=== PATIENT | female | born 1935 | race African-American/Black ===

== ENCOUNTER 2019-06-14 00:01 | Inpatient (IN) | payer MEDICARE ==
[~2019-06-14] VITALS: Ht 157.5 cm; Wt 69.0 kg
[2019-06-14 00:48] LABS: Basophils # (auto) 0.1 uL; Basophils % (auto) 0.7 % (0.0-2.0); Eosinophils # (auto) 0.2 uL; Eosinophils % (auto) 1.9 % (0.0-7.0); Hematocrit 30.6 % (36.0-46.0); Hemoglobin 9.9 g/dL (12.2-16.2); Lymphocytes # (auto) 1.1 uL; Lymphocytes % (auto) 9.5 % (10.0-50.0); Mean Corpuscular Hemoglobin 28.5 pg (28.0-32.0); Mean Corpuscular Hgb Conc. 32.3 g/dL (32.0-36.0); Mean Corpuscular Volume 88.4 fL (80.0-100.0); Monocytes # (auto) 1.6 uL; Monocytes % (auto) 14.6 % (0.0-12.0); Neutrophils # (auto) 8.2 uL; Neutrophils % (auto) 73.3 % (37.0-80.0); Platelet Count (auto) 339 10^3/uL (140-450); Red Blood Cells 3.46 10^6/uL (4.0-5.20); Red Cell Distribution Width 18.3 % (11.8-14.3); White Blood Cell 11.2 10^3/uL (4.4-10.8)
[2019-06-14 01:01] LABS: Alanine Aminotransferase 10 U/L (13-56); Albumin 1.9 g/dL (3.4-5.0); Anion Gap 8 (5-15); Aspartate Aminotransferase 17 U/L (15-37); BUN/Creatinine Ratio 23.2; Blood Urea Nitrogen 57 mg/dL (7-18); Calcium 8.1 mg/dL (8.5-10.1); Carbon Dioxide 23 mmol/L (21-32); Chloride 111 mmol/L (98-107); GFR African American 24 mL/min; GFR Non-African American 20 mL/min; Glucose 84 mg/dL (74-106); Potassium 3.9 mmol/L (3.5-5.1); Sodium 142 mmol/L (136-145)
[2019-06-14 01:02] LABS: INR 1.08 (0.9-1.15); Partial Thromboplastin Time 26.8 sec (23.64-32.05)
[2019-06-14 01:05] LABS: Alkaline Phosphatase 108 U/L (45-117); Bilirubin, Total 0.8 mg/dL (0.2-1.0)
[2019-06-14] MEDS ORDERED: MORPHINE SULF INJ 2 MG/ML SYRINGE 1ML IV ONE (04:30)
[2019-06-14] MEDS ORDERED: metroNIDAZOLE 500MG/100ML 100 ML IV ONE (04:30)
[2019-06-14] MEDS ORDERED: ALBUMIN 5% 50 ML IV ONE (04:30)
[2019-06-14] MEDS ORDERED: LEVOFLOXACIN 500MG 100 ML IV ONE (04:30)
[2019-06-14] MEDS ORDERED: ONDANSETRON HCL 4 MG/2 ML VIAL IV ONE (04:30)
[2019-06-14] MEDS ORDERED: MORPHINE SULF INJ 2 MG/ML SYRINGE 1ML IV PRN (07:15)
[2019-06-14] MEDS ORDERED: NITROGLYCERIN 0.4 MG SL TAB SL PRN (07:15)
[2019-06-14] MEDS ORDERED: ACETAMINOPHEN 325 MG TAB PO PRN (07:15)
[2019-06-14] MEDS ORDERED: TEMAZEPAM 15 MG CAP PO PRN (07:15)
[2019-06-14 07:58] LABS: Hematocrit 27.5 % (36.0-46.0)
[2019-06-14 08:40] VITALS: BP 94/36
[2019-06-14] MEDS ORDERED: PANTOPRAZOLE 40 MG TAB PO SCH (10:00)
[2019-06-14 11:15] VITALS: BP 106/68
[2019-06-14 11:33] VITALS: BP 106/68
[2019-06-14 11:33] LABS: Urine Bacteria NONE SEEN /hpf (None Seen); Urine Blood 2+ /uL (Negative); Urine Mucus FEW (None Seen); Urine Specific Gravity 1.013 (1.001-1.035); Urine WBC 4476 /hpf (0 - 5); Urine WBC Clumps PRESENT /hpf (None Seen)
[2019-06-14 12:01] LABS: Hemoglobin 9.2 g/dL (12.2-16.2)
[2019-06-14] MEDS: PANTOPRAZOLE 40 MG/10 ML VIAL INJ IV SCH ×2 (12:19→21:40)
[2019-06-14] MEDS: D5W/SOD CHL 0.45% 1,000 ML IV SCH (12:20)
--- NOTE | 2019-06-14 13:15 | NUR ---
Patient requesting pain meds Pt c/o pain to wound areas including sacrum and bilat lower extremities. New orders received from Dr. Hairston for [facility]. Will medicate as ordered and cont care
[2019-06-14] MEDS: HYDROcodone-ACET 5/325MG TAB PO PRN ×2 (13:23→21:40)
[2019-06-14 16:28] VITALS: BP 94/49
[2019-06-14] MEDS: FUROSEMIDE 20 MG TAB PO SCH (18:00)
[2019-06-14 18:41] LABS: Hematocrit 28.8 % (36.0-46.0); Hemoglobin 9.2 g/dL (12.2-16.2)
--- NOTE | 2019-06-14 19:00 | NUR ---
OPENING NOTE Received report from day shift RN. Patient is A&O X's 4 with no s/s of distress noted. Patient's family member at bedside. Patient had crackers in her hand. Educated patient and family member that she can only have liquids right now. They verbalized understanding and patient's family took the food away. Educated patient on POC and to use call light when in need of assistance. Patient verbalized understanding. Bed is in lowest/locked position with side rails up X's 2 and call light is within reach of patient. Will continue care.
[2019-06-14 21:46] VITALS: BP 90/44
--- NOTE | 2019-06-14 21:46 | NUR ---
REASSESSED BLOOD PRESSURE 90/34. Patient asymptomatic
[2019-06-14 22:10] VITALS: BP 80/34
--- NOTE | 2019-06-14 23:30 | NUR ---
WOUND PHOTOS Wound photos were taken at this time. Cleaned wounds and applied optifoam to sacrum. Patient tolerated well. Filled out wound photo paper
--- NOTE | 2019-06-14 23:30 | NUR ---
WOUND CULTURE SENT VIA BULLET TO LAB
--- NOTE | 2019-06-15 00:16 | NUR ---
Respiratory note: ASSESSED PT FOR PRN MED NEB AT THIS TIME, PT DENIES SOB AT THIS TIME, NO RESP DISTRESS NOTED, NO TX INDICATED. PULSE OX 100% ON 2LNC, HR 65, RR 20, BILATERAL BS DECREASED.
[2019-06-15 01:10] LABS: Hematocrit 28.3 % (36.0-46.0); Hemoglobin 9.2 g/dL (12.2-16.2)
[2019-06-15] MEDS: FUROSEMIDE 20 MG TAB PO SCH (05:24)
[2019-06-15 05:34] VITALS: BP 94/36
[2019-06-15 06:06] LABS: Basophils # (auto) 0 uL; Basophils % (auto) 0.5 % (0.0-2.0); Eosinophils # (auto) 0.5 uL; Eosinophils % (auto) 5.5 % (0.0-7.0); Hematocrit 26.9 % (36.0-46.0); Hemoglobin 8.7 g/dL (12.2-16.2); Lymphocytes # (auto) 1.2 uL; Mean Corpuscular Hemoglobin 29.4 pg (28.0-32.0); Mean Corpuscular Hgb Conc. 32.2 g/dL (32.0-36.0); Mean Corpuscular Volume 91.4 fL (80.0-100.0); Monocytes # (auto) 1.4 uL; Monocytes % (auto) 16.7 % (0.0-12.0); Neutrophils # (auto) 5.1 uL; Neutrophils % (auto) 62.3 % (37.0-80.0); Nucleated Red Blood Cells % 0.1 %; Platelet Count (auto) 268 10^3/uL (140-450); Red Blood Cells 2.94 10^6/uL (4.0-5.20); Red Cell Distribution Width 19.1 % (11.8-14.3); White Blood Cell 8.3 10^3/uL (4.4-10.8)
[2019-06-15] MEDS: LEVOFLOXACIN 250MG 50 ML IV SCH (06:19)
[2019-06-15 06:20] LABS: Potassium 3.8 mmol/L (3.5-5.1)
[2019-06-15 06:25] LABS: BUN/Creatinine Ratio 32.4; Calcium 7.7 mg/dL (8.5-10.1)
--- NOTE | 2019-06-15 07:10 | NUR ---
Respiratory note: PT SEEN TO ASSESS PRN MED NEB TREATMENT. PT IS NOT SOB OR IN ANY DISTRESS. PT FOUND ON 2 LPM SP02 100%, HR 72, RR 18. B/S ARE CLEAR AND DIMINISHED AT BASES. NO TREATMENT INDICATED AT THIS TIME. PT EDUCATED TO USE CALL BUTTON IF FEELING SOB OR WHEEZING AND TREATMENT CAN BE GIVEN AT THAT TIME.
[2019-06-15 08:03] VITALS: BP 95/48
[2019-06-15] MEDS ORDERED: MULTTAB61 PO (08:57)
[2019-06-15] MEDS ORDERED: FURO40TA4 PO (08:57)
[2019-06-15] MEDS: PANTOPRAZOLE 40 MG/10 ML VIAL INJ IV SCH (09:51)
[2019-06-15] MEDS: D5W/SOD CHL 0.45% 1,000 ML IV SCH (09:54)
--- NOTE | 2019-06-15 12:09 | NUR ---
Hospitalist at bedside MD Hairston at bedside, aware of patient's status. New orders received. Pt's son Lv requesting MD to contact him, MD Hairston will call son to update on POC and status. Will cont care
[2019-06-15 12:11] VITALS: BP 119/58
[2019-06-15] MEDS ORDERED: PANTOPRAZOLE 40 MG TAB PO ONE (12:15)
[2019-06-15] MEDS: HYDROcodone-ACET 5/325MG TAB PO PRN ×2 (12:33→20:11)
--- NOTE | 2019-06-15 14:10 | NUR ---
WOUND CARE NOTE: Wound care consult received from Dr Hairston. Patient is a 84yo female admitted for GI bleed. Patient with a history of chronic kidney disease, CHF, COPD and afib. Patient is alert and denies pain. Last Hansel score is 16. Patient states that she had a nurse come and apply dressings to bilateral lower extremities Tuesdays and Fridays. Patient also has severe incontinence associated dermatitis to right posterior thigh and buttocks. Patient also with a shallow pressure injury to sacrum that measures 2x2cm. RECOMMENDATIONS: Dietary consult; Turn q2hrs; Nursing to cleanse buttocks and posterior thighs with wound cleanser, pat dry, apply ZGUARD, and cover with OPTIFOAM GENTLE dressings, change daily/PRN soiling; Nursing to cleanse bilateral lower extremities with wound cleanser, pat dry, cover open wound to right lieberman with OPTIFOAM, wrap bilateral legs with UNNAS BOOTS (start 1" below toes and work way up over lapping to 1" below knee), cover with 1 layer of kerlex gauze and may cover with GEORGE wrap, change q3days/PRN; wound care team to follow. Addendum: 06/15/19 at 1856 by PARMJIT LIMON RN Amended: Links added.
[2019-06-15 16:30] VITALS: BP 107/40
--- NOTE | 2019-06-15 19:00 | NUR ---
Patient care endorsed endorsed care to Pollo rn. Patient sitting up in bed no acute distress or sob. Family at bedside
--- NOTE | 2019-06-15 19:26 | NUR ---
Opening Shift Note Assumed care of patient, awake and alert x 4. No S/S of distress/SOB. Bed is in lowest position and locked. Call light within reach. Board updated. Tele box number matches monitor and leads are in correct placement. Padilla catheter secured to thigh and bag is hanging below bladder, secured to non-moveable part of bedframe. Instructed on POC and to call for assist PRN, will continue to monitor for changes Q1hr and PRN.
[2019-06-15] MEDS: PANTOPRAZOLE 40 MG TAB PO SCH (21:07)
[2019-06-15 22:46] VITALS: BP 98/36
--- NOTE | 2019-06-15 23:36 | NUR ---
BP Reassess: BP is 99/48 with MAP of 65. Will continue to monitor.
--- NOTE | 2019-06-16 00:32 | NUR ---
Respiratory note: NO PRN TX GIVEN, NOT INDICATED AT THIS TIME. SPO2 98%, HR 59, RR 16. NO SOB NOTED.
[2019-06-16] MEDS: HYDROcodone-ACET 5/325MG TAB PO PRN ×3 (02:03→21:05)
[2019-06-16 05:34] VITALS: BP 95/52
[2019-06-16 06:10] LABS: Basophils # (auto) 0 uL; Basophils % (auto) 0.4 % (0.0-2.0); Eosinophils # (auto) 0.4 uL; Eosinophils % (auto) 4.7 % (0.0-7.0); Hematocrit 27.6 % (36.0-46.0); Lymphocytes # (auto) 1.2 uL; Lymphocytes % (auto) 14.8 % (10.0-50.0); Mean Corpuscular Hemoglobin 29.5 pg (28.0-32.0); Mean Corpuscular Hgb Conc. 32.6 g/dL (32.0-36.0); Mean Corpuscular Volume 90.7 fL (80.0-100.0); Monocytes # (auto) 1.1 uL; Monocytes % (auto) 13.7 % (0.0-12.0); Neutrophils # (auto) 5.2 uL; Neutrophils % (auto) 66.4 % (37.0-80.0); Platelet Count (auto) 269 10^3/uL (140-450); Red Blood Cells 3.04 10^6/uL (4.0-5.20); Red Cell Distribution Width 18.6 % (11.8-14.3); White Blood Cell 7.8 10^3/uL (4.4-10.8)
[2019-06-16] MEDS: LEVOFLOXACIN 250MG 50 ML IV SCH (06:10)
[2019-06-16 06:45] LABS: Calcium 7.6 mg/dL (8.5-10.1); Potassium 4.8 mmol/L (3.5-5.1)
--- NOTE | 2019-06-16 06:45 | NUR ---
PT. ASSESSED FOR PRN. MN. TX., NO RESP. DISTRESS OR SOB NOTED. PT. DENIES ANY SOB AT THIS TIME. BS. ARE CLEAR AND DIMINISHED BILAT., HR=58,RR=18,DR22=438% ON 2LPM NC. PRN. TX. NOT INDICATED. PT. INSTRUCTED TO CALL IF TX. IS NEEDED. NO TX. GIVEN.
[2019-06-16 06:53] LABS: BUN/Creatinine Ratio 35.9
--- NOTE | 2019-06-16 07:50 | NUR ---
OPENING NOTE Assumed care of patient from NOC RN, Pollo. Patient awake and alert with no S/S of distress/SOB. C/O of bilateral leg pain and sacral pain, 6/10 on adult pain scale. Will administer prn pain medications as ordered. Padilla catheter intact, patent and hung below bed. Instructed on POC and to call for assist PRN, verbalized understanding. Bed in lowest, locked position with side rails up x2. Fall precautions in place and call light within reach. Will continue to monitor for changes Q1hr and PRN.
[2019-06-16 08:14] VITALS: BP 85/40
[2019-06-16] MEDS ORDERED: SOD CHL 0.45% 1,000 ML IV SCH (10:00)
[2019-06-16] MEDS ORDERED: VANCOMYCIN PER PHARMACY 0 MG IV SCH (11:00)
--- NOTE | 2019-06-16 11:20 | NUR ---
IV Additional IV insertion at the right forearm, with a 20g catheter after 1 attempt. Patient tolerated well.
[2019-06-16] MEDS: PANTOPRAZOLE 40 MG TAB PO SCH ×2 (11:24→21:04)
[2019-06-16] MEDS ORDERED: IOHEXOL 350 MG/ML 100ML IJ ONE ×2 (11:45→11:47)
[2019-06-16 12:05] VITALS: BP 104/54
--- NOTE | 2019-06-16 12:12 | NUR ---
NUTRITION CONSULT/ASSESSMENT NOTES Please refer to link notes of nutrition screen form filed under the intervention section of the plan of care for further details. Est. Needs: 1350 kcal to 1700 kcal (20-25 kcal/kgBW), 54 gms to 68 gms pro (0.8-1.0 gms/kgBW). Will continue to monitor pertinent labs and reassess nutrient need prn Thank you for this consult. Addendum: 06/16/19 at [address] Amended: Links added.
--- NOTE | 2019-06-16 12:42 | NUR ---
OFF UNIT Patient taken off unit via wheelchair for test. No S/S of distress noted.
[2019-06-16] MEDS: VANCOMYCIN 500 MG in D5W 5% 100 ML IV SCH (14:09)
[2019-06-16] MEDS: SODIUM CHLORIDE 0.9% 1,000 ML IV SCH (14:09)
[2019-06-16 16:28] VITALS: BP 99/46
--- NOTE | 2019-06-16 18:13 | NUR ---
FAMILY Patient's family at bedside.
--- NOTE | 2019-06-16 19:58 | NUR ---
Respiratory note: ASSESSMENT FOR PRN MED NEB TX. PT PRESENTING NO DISTRESS AT THIS TIME. HR 67, SPO2 99%, RR 16 B/S DIMINISHED CLEAR. MED NEB TX NOT INDICATED AT THIS TIME. PT AWARE TO HAVE RT PAGED IF MED NEB TX IS NEEDED, WILL CONTINUE TO MONITOR.
[2019-06-16 22:00] VITALS: BP 103/44
[2019-06-17 01:34] LABS: Urine Bacteria NONE SEEN /hpf (None Seen); Urine Blood 2+ /uL (Negative); Urine Mucus FEW (None Seen); Urine WBC 93 /hpf (0 - 5)
[2019-06-17 05:00] VITALS: BP 103/49
[2019-06-17 05:19] LABS: Basophils # (auto) 0.1 uL; Basophils % (auto) 0.7 % (0.0-2.0); Eosinophils # (auto) 0.5 uL; Eosinophils % (auto) 6.3 % (0.0-7.0); Hematocrit 28.2 % (36.0-46.0); Hemoglobin 9.1 g/dL (12.2-16.2); Lymphocytes % (auto) 12.6 % (10.0-50.0); Mean Corpuscular Hemoglobin 29.3 pg (28.0-32.0); Mean Corpuscular Hgb Conc. 32.3 g/dL (32.0-36.0); Mean Corpuscular Volume 90.7 fL (80.0-100.0); Monocytes # (auto) 1.2 uL; Monocytes % (auto) 14.5 % (0.0-12.0); Neutrophils # (auto) 5.2 uL; Neutrophils % (auto) 65.9 % (37.0-80.0); Platelet Count (auto) 249 10^3/uL (140-450); Red Blood Cells 3.11 10^6/uL (4.0-5.20); Red Cell Distribution Width 18.9 % (11.8-14.3)
[2019-06-17 05:28] LABS: Albumin 1.7 g/dL (3.4-5.0); Calcium 8.1 mg/dL (8.5-10.1); Potassium 5.2 mmol/L (3.5-5.1)
[2019-06-17 05:33] LABS: BUN/Creatinine Ratio 32.5; Bilirubin, Total 0.2 mg/dL (0.2-1.0); Total Protein 6.1 g/dL (6.4-8.2)
--- NOTE | 2019-06-17 05:45 | NUR ---
Patients Valuables Envelope Primary RN brought belongings envelope number [id number] to the house supervisors office to be placed in the safe, the envelope will be endorsed to day shift Porter Head Kimberli to place in the safe.
[2019-06-17] MEDS: SODIUM CHLORIDE 0.9% 1,000 ML IV SCH ×2 (06:00)
[2019-06-17] MEDS: LEVOFLOXACIN 250MG 50 ML IV SCH (06:21)
[2019-06-17] MEDS: HYDROcodone-ACET 5/325MG TAB PO PRN ×2 (06:22→20:20)
--- NOTE | 2019-06-17 07:29 | NUR ---
OPENING NOTE Assumed care of patient from NOC RN, Pollo. Patient awake and alert with no S/S of distress/SOB. C/O of bilateral leg pain and sacral pain, 5/10 on adult pain scale. Will administer prn pain medications as ordered. Padilla catheter intact, patent and hung below bed. Instructed on POC and to call for assist PRN, verbalized understanding. Bed in lowest, locked position with side rails up x2. Fall precautions in place and call light within reach. Will continue to monitor for changes Q1hr and PRN.
[2019-06-17 09:00] VITALS: BP 94/47
[2019-06-17] MEDS ORDERED: SODIUM ZIRCONIUM CYCL 10 GM PAK PO ONE (09:00)
--- NOTE | 2019-06-17 09:31 | NUR ---
OFF UNIT Patient taken off unit via bed for scheduled procedure, no S/S of distress noted.
[2019-06-17] MEDS ORDERED: LIDOCAINE 2%HCL (LOCAL ANESTH.) INJ 20ML MDV ONE (09:48)
[2019-06-17] MEDS ORDERED: IOHEXOL 350 MG/ML 100ML IJ ONE (09:48)
[2019-06-17] MEDS ORDERED: ANGIOMAX 250 MG VIAL IV ONE (09:58)
[2019-06-17] MEDS ORDERED: MIDAZOLAM HCL 1MG/1ML-2 ML VIAL ONE (09:59)
[2019-06-17] MEDS ORDERED: SODIUM CHL 0.9% 50 ML ONE (09:59)
[2019-06-17] MEDS ORDERED: fentaNYL CITRATE 100 MCG/2 ML VL ONE (09:59)
[2019-06-17] MEDS: PANTOPRAZOLE 40 MG TAB PO SCH ×2 (10:00→22:50)
[2019-06-17] MEDS ORDERED: IODIXANOL 320MG/ML 100ML BTL IV ONE (10:09)
[2019-06-17] MEDS ORDERED: FUROSEMIDE 100 MG/10ML VIAL IV ONE (10:30)
[2019-06-17] MEDS ORDERED: LEVOFLOXACIN 250MG 50 ML IV ONE (11:15)
[2019-06-17 13:00] VITALS: BP 106/55
--- NOTE | 2019-06-17 13:45 | NUR ---
RETURN TO UNIT Patient returned to unit and was assessed by Mamta SIMEON. Per RN, left groin incision soft touch with no S/S of bleeding/hemorrhage. Patient aware she needs to remain flat unit 1440. Bed in lowest, locked position with side rails up x2. Fall precautions in place and call light within reach.Will continue to monitor Q1hr/PRN.
--- NOTE | 2019-06-17 13:50 | NUR ---
HEMATURIA Per bolt labeler RN, patient experiencing hematuria. MD aware, will continue to monitor.
--- NOTE | 2019-06-17 14:21 | NUR ---
assessment Patient is a 84 year old female who is alert and oriented. Patients cognitive abilities are intact. Prior to admission patient lived home with her son Lv and family and functioned with assistance. Per patient she will return home to her prior living arrangements post discharge and her family will transport her home. Patient informed me she has a fww for home use. Patient informed me she was living with her son in [place] for a little while, then moved with son in [place] and is now with Lv here locally. Per patient she stays between her 3 son's. Patient informed me she feels safe returning home with Lv and family on discharge. Patient does not have a PCP. Joi Arce to see patient for PCP. Patient has home health prior to admission, but does not remember the name of the company. -Patient will need a resumption order on discharge. I informed patient she has a right to speak to a social media senior associate regarding all care. I informed patient she has a right to participate in any and all discharge planning. Patient does not have a POA and advanced directive. I have offered patient information on POA and advanced directives. I informed the patient the advantages and benefits of having an Advanced Directive. Patient verbalized understanding and agreed to discharge plan home. Addendum: 06/17/19 at 1426 by Joi BRODY Amended: Links added.
--- NOTE | 2019-06-17 15:16 | NUR ---
REASSESSED Reassessed patient's left groin, remains soft to touch with no S/S of bleeding.
--- NOTE | 2019-06-17 15:31 | NUR ---
ASSESSED PT FOR MED NEB PRN TX, PT ON 3L NC WITH NO DISTRESS NOTED WITH GOOD INSPIRATORY EFFORT. NO INDICATION FOR MED NEB AT THIS TIME. WILL CONTINUE TO MONITOR PT.
[2019-06-17] MEDS: VANCOMYCIN 500 MG in D5W 5% 100 ML IV SCH (15:46)
[2019-06-17] MEDS: Pro-Stat SF 30ml Vanilla PO SCH (18:00)
[2019-06-17] MEDS: Ensure Enlive Chocolate 8oz Bottle PO SCH (18:00)
--- NOTE | 2019-06-17 18:40 | NUR ---
DRESSING CHANGE Removed soiled sacral/buttock dressing. Cleaned area with wound cleanser, patted dry with sterile 4x4 gauze. Applied z-guard to wound beds, covered with gentle optifoam dressing.
--- NOTE | 2019-06-17 19:33 | NUR ---
CLOSING NOTE Endorsed care of patient to NOC Franca SIMEON. Patient's family at bedside.
--- NOTE | 2019-06-17 19:47 | NUR ---
RT NOTE PT WAS SEEN BY RT FOR PRN HHN TX. PT IS AWAKE WITHOUT SOB OR DISTRESS. FAMILY MEMBERS AND RN ARE AT BEDSIDE. PT STATES NO TREATMENT NEEDED AT THIS TIME. NO SOB OR DISTRESS NOTED. HR 68, RR 18, BS CLEAR/DIM POX 98% ON 2L NASAL CANNULA. PT IS AWARE TO CALL IF TX NEEDED. PT REQUESTING EXTRA BLANKET, RN STATES SHE WILL GET IT. FAMILY MEMBERS REQUESTING EXTRA CUPS, RN STATES SHE WILL PROVIDE THEM WELL. CONT ORDERED Addendum: 06/17/19 at 1950 by Mayelin Talbert RT Amended: Links added.
[2019-06-17 20:00] VITALS: BP 98/54
--- NOTE | 2019-06-17 20:00 | NUR ---
Opening Shift Note Assumed care of patient, awake and alert. No S/S of distress/SOB. Patient complains of pain to left lower extremity. Family at bedside. 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 Padilla intact draining to gravity callie cloudy urine. Bed in low position and call light in reach. Instructed on POC and to call for assist PRN, will continue to monitor for changes Q1hr and PRN.
[2019-06-17 22:00] VITALS: BP 98/54
--- NOTE | 2019-06-18 00:15 | NUR ---
Care transferred Received report about patient from BLANCO Schulte
--- NOTE | 2019-06-18 00:33 | NUR ---
Patient repositioned to left side. Heels floating off bed. Call light in reach. No distress noted. Report given to Sofía.
[2019-06-18 05:07] LABS: Hematocrit 24.2 % (36.0-46.0)
[2019-06-18 05:09] LABS: Hemoglobin 8.2 g/dL (12.2-16.2)
[2019-06-18 05:31] LABS: Albumin 1.4 g/dL (3.4-5.0); Calcium 7.8 mg/dL (8.5-10.1); Potassium 4.3 mmol/L (3.5-5.1)
[2019-06-18 05:32] VITALS: BP 91/43
--- NOTE | 2019-06-18 05:32 | NUR ---
Respiratory note: HHN TX NOT INDICATED AT THIS TIME. RR 17 HR 64 SPO2 100% ON 2L NC. BREATH SOUNDS CLEAR. WILL CONTINUE TO MONITOR.
[2019-06-18 05:36] LABS: BUN/Creatinine Ratio 27.2; Bilirubin, Total 0.1 mg/dL (0.2-1.0); Total Protein 5.3 g/dL (6.4-8.2)
--- NOTE | 2019-06-18 07:22 | NUR ---
Open Shift Note Received report on patient, asleep in bed but easily awoken to name. Patient shows no signs of distress at this time. Discussed POC with patient. Bed in lowest locked position, side rails up x2 and call light within reach. Will continue to monitor.
--- NOTE | 2019-06-18 07:43 | NUR ---
REPORT GIVEN TO ALE SIMEON. LEFT GROIN DRESSING IS CLEAN DRY AND INTACT. AREA IS SOFT.
[2019-06-18 09:00] VITALS: BP 92/75
[2019-06-18] MEDS: Ensure Enlive Chocolate 8oz Bottle PO SCH ×2 (09:17→18:54)
[2019-06-18] MEDS: Pro-Stat SF 30ml Vanilla PO SCH ×2 (09:18→18:54)
[2019-06-18 11:11] LABS: Urine Bacteria FEW /hpf (None Seen); Urine Blood 2+ /uL (Negative); Urine Mucus FEW (None Seen); Urine WBC 152 /hpf (0 - 5); Urine WBC Clumps PRESENT /hpf (None Seen)
[2019-06-18 11:15] LABS: Urine Specific Gravity > 1.050 (1.001-1.035)
[2019-06-18] MEDS: PANTOPRAZOLE 40 MG TAB PO SCH ×2 (12:49→22:27)
[2019-06-18] MEDS: LEVOFLOXACIN 500MG 100 ML IV SCH (12:49)
[2019-06-18 13:00] VITALS: BP 100/45
[2019-06-18] MEDS: LINEZOLID 600MG/300ML 300 ML IV SCH ×2 (16:17→22:18)
[2019-06-18] MEDS: SODIUM CHLORIDE 0.9% 1,000 ML IV SCH ×2 (16:18→19:15)
[2019-06-18 17:00] VITALS: BP 99/49
--- NOTE | 2019-06-18 19:04 | NUR ---
Closing Note Patient lying in bed, shows no signs of distress at this time. Family present at bedside. Care endorsed to NOC nurse.
[2019-06-18] MEDS: HYDROcodone-ACET 5/325MG TAB PO PRN (19:50)
[2019-06-18 20:00] VITALS: BP 87/52
--- NOTE | 2019-06-18 20:00 | NUR ---
Opening Shift Note Assumed care of patient, awake and alert. No S/S of distress/SOB. Patient complains of pain to left ankle and leg. Lower extremities placed on pillows for comfort. Family members at bedside. Instructed on POC and to call for assist PRN, will continue to monitor for changes Q1hr and PRN.
--- NOTE | 2019-06-18 22:32 | NUR ---
Respiratory note: PT SEEN AND ASSESSED FOR PRN MED NEB TX AT 2232. TX NOT INDICATED AT THIS TIME. PT DENIES ANY SOB OR DISTRESS, STATING THAT SHE FEELS OKAY RIGHT NOW. BREATH SOUNDS WERE DIMINISHED BILATERALLY. HR 71 RR 18 POX 99% ON 2L NASAL CANNULA. PT AWARE TO CALL FOR RT IF ANY DISTRESS OCCURS.
[2019-06-18 23:07] VITALS: BP 87/52
[2019-06-19 04:33] VITALS: BP 94/43
[2019-06-19] MEDS: SODIUM CHLORIDE 0.9% 1,000 ML IV SCH ×2 (05:15→20:54)
--- NOTE | 2019-06-19 06:00 | NUR ---
IV removal 20 gauge IV to RFA noted to be infiltrated. IV d/c catheter fully intact. Pressure dressing applied to site. Patient tolerated procedure well.
--- NOTE | 2019-06-19 07:00 | NUR ---
Closing Note: Patient resting comfortably. Report given to day shift RN
--- NOTE | 2019-06-19 07:08 | NUR ---
Respiratory note: PT ON 2L NASAL CANNULA. SPO2 100%. PT STATES SHE DOESNT FEEL SOB OR IN ANY DISTRESS. PT BS WHEEZING AND EDUCATED ON BENEFITS OF HHN TX AND PT DENIES TX. HR WAS 61 AND DID NOT LOOK LIKE SHE WAS IN DISTRESS.
--- NOTE | 2019-06-19 07:15 | NUR ---
Open Shift Note Received report on patient, asleep in bed but easily awoken to name. Patient shows no signs of distress at this time. Discussed POC and plans for angiogram tomorrow. Patient verbalized understanding.
[2019-06-19] MEDS: Pro-Stat SF 30ml Vanilla PO SCH ×2 (08:00→18:42)
[2019-06-19] MEDS: Ensure Enlive Chocolate 8oz Bottle PO SCH ×2 (08:00→18:00)
[2019-06-19 09:00] VITALS: BP 100/45
[2019-06-19 09:26] LABS: Eosinophils # (auto) 0.5 uL; Hematocrit 24.1 % (36.0-46.0); Lymphocytes # (auto) 1.1 uL; Neutrophils # (auto) 8.2 uL; Red Blood Cells 2.66 10^6/uL (4.0-5.20); White Blood Cell 11.4 10^3/uL (4.4-10.8)
[2019-06-19 09:28] LABS: Basophils # (auto) 0.1 uL; Basophils % (auto) 0.7 % (0.0-2.0); Eosinophils % (auto) 4.6 % (0.0-7.0); Hemoglobin 7.8 g/dL (12.2-16.2); Lymphocytes % (auto) 9.9 % (10.0-50.0); Mean Corpuscular Hemoglobin 29.3 pg (28.0-32.0); Mean Corpuscular Hgb Conc. 32.3 g/dL (32.0-36.0); Mean Corpuscular Volume 90.7 fL (80.0-100.0); Monocytes # (auto) 1.5 uL; Monocytes % (auto) 12.8 % (0.0-12.0); Platelet Count (auto) 201 10^3/uL (140-450); Red Cell Distribution Width 18.6 % (11.8-14.3)
[2019-06-19 09:39] LABS: Albumin 1.4 g/dL (3.4-5.0); Calcium 7.7 mg/dL (8.5-10.1); Potassium 4.8 mmol/L (3.5-5.1)
[2019-06-19 09:42] LABS: BUN/Creatinine Ratio 19.7; Bilirubin, Total 0.3 mg/dL (0.2-1.0); Total Protein 5.7 g/dL (6.4-8.2)
[2019-06-19] MEDS: PANTOPRAZOLE 40 MG TAB PO SCH ×2 (10:14→22:20)
[2019-06-19] MEDS: LEVOFLOXACIN 500MG 100 ML IV SCH (10:14)
--- NOTE | 2019-06-19 11:55 | NUR ---
Nutrition Follow-up Notes Wt.: 73.2 kg Pt was sleeping with no family by bedside. per records pt with GI bleed refused colonoscopy. pt with severe PVD. pt is currently on 2 gm na diet with inadequate PO of 50% x 6 per RN doc Est. Needs: 1350 kcal to 1700 kcal (20-25 kcal/kgBW), 54 gms to 68 gms pro (0.8-1.0 gms/kgBW). Will continue to monitor pertinent labs and reassess nutrient need prn Labs: BUN 34 H, CREAT 1.25 H, CA 7.8 L, ALB 1.4 L, GLU 115 H Skin: Hansel scale 13, mod risk, pt's with pressure ulcer sacrum per fishing accessories maker. GI: Pt had 1 BM today per fishing accessories maker. PES: Altered nutrition related lab values r/t current/chronic medical condition aeb hyperchloremia, elev. renal labs, hypocalcemia and severe hypoalbuminemia Will continue to monitor PO intake, skin status, pertinent labs and weight trend. F/u in 3 to 5 days. Rec.: 1.) Consider close supervision and feeding assistance prn during meals. 2.) If Albumin continues trending down, consider Prostat 1 pkt BID. 3.) Consider daily MVI with minerals and Asc acid 500 mgs BID. 4.) If pt's PO intake remains inadequate (<75%), consider Ensure Enlive 1 carton BID. 5.) Refer to RD for further nutrition educ. and weight monitoring upon discharge. 6.) Continue current plan of care.
--- NOTE | 2019-06-19 12:00 | NUR ---
Dressing Change Changed patient's sacral dressing and wound on thigh per orders. Patient tolerated ok.
[2019-06-19] MEDS: LINEZOLID 600MG/300ML 300 ML IV SCH (12:42)
[2019-06-19 16:42] VITALS: BP 86/40
--- NOTE | 2019-06-19 18:38 | NUR ---
Wound Care-Lower Extremities Performed wound care to bilateral lower extremities per orders. Patient tolerated well.
--- NOTE | 2019-06-19 18:42 | NUR ---
Closing Note Patient sitting up in bed, shows no signs of distress at this time. Bed in lowest locked position, side rails up x2 and call light within reach.
--- NOTE | 2019-06-19 19:30 | NUR ---
OPENING SHIFT NOTE Assumed care of patient who is A&Ox4. Currently on 3L NC. Reports using home O2 at 3L as well. C/O pain in BLE and buttocks during repositioning. 20 gauge IV in right forearm is intact and patent. Flushed with 10ml NS. Zeenat-care provided for BM x1 of clear mucous stool. Patient repositioned onto left side. POC discussed with patient who verbalizes understanding. Bed is in low locked position with side rails up x2. Call light within reach. Will continue to monitor for changes PRN.
[2019-06-19 20:00] VITALS: BP 91/42
--- NOTE | 2019-06-19 20:10 | NUR ---
Respiratory note: PT RECEIVED ON NC2L. PT AWAKE AND ALERT. NO RESP DISTRESS NOTED. BS REVEAL MILD WHEEZING, BUT PT STATES SHE IS FINE AND NOT REQUESTING PRN TX. NO PRN TX GIVEN AT THIS TIME. SPO2 ON NC2L 99%, HR 68, RR 18. PT MADE AWARE TO CALL FOR RT IF SOB/WHEEZING.
--- NOTE | 2019-06-19 21:00 | NUR ---
BLENDER HELPER obtained and reported a BP of 83/46 with heart rate of 58. Reassessed by this RN and BP is 91/42, heart rate 65. NS currently infusing at 100ml/hr. Will continue to monitor.
[2019-06-19 22:12] VITALS: BP 83/46
--- NOTE | 2019-06-19 22:20 | NUR ---
WOUND CARE Dressings on left posterior thigh, ischium, and sacrum removed due to partial dislodgement. Wound beds on left thigh and ischium are beefy red with scant serosanguineous drainage. Cleansed with wound cleanser, patted dry with sterile gauze, z-guard ointment applied and wounds covered with Optifoam dressings. Sacral wound bed is pink and smooth. Wound edges are macerated. Cleansed with wound cleanser and patted dry with sterile gauze. Z-guard ointment applied and wound covered with Opitfoam dressing. Patient repositioned onto left side. Heels floated on pillow. Patient tolerated well.
--- NOTE | 2019-06-20 04:28 | NUR ---
HEAD SOFT SUGAR OPERATOR obtained and reported a BP of 77/31 and urine output of 75ml. Reassessed by this RN and BP is 85/43, heart rate 64. Patient is asymptomatic. Will notify hospitalist.
[2019-06-20 04:42] VITALS: BP 77/31
--- NOTE | 2019-06-20 05:19 | NUR ---
Received call from Jair Ross NP. New order received. Will follow through.
[2019-06-20 05:25] LABS: Basophils # (auto) 0 uL; Eosinophils # (auto) 0.6 uL; Lymphocytes % (auto) 9.6 % (10.0-50.0); Mean Corpuscular Hgb Conc. 32.9 g/dL (32.0-36.0)
[2019-06-20 05:30] LABS: Basophils % (auto) 0.4 % (0.0-2.0); Hematocrit 22.8 % (36.0-46.0); Hemoglobin 7.5 g/dL (12.2-16.2); Lymphocytes # (auto) 0.9 uL; Mean Corpuscular Hemoglobin 29.6 pg (28.0-32.0); Mean Corpuscular Volume 90.1 fL (80.0-100.0); Monocytes # (auto) 1.3 uL; Monocytes % (auto) 13.6 % (0.0-12.0); Neutrophils # (auto) 6.9 uL; Neutrophils % (auto) 70.4 % (37.0-80.0); Platelet Count (auto) 197 10^3/uL (140-450); Red Blood Cells 2.53 10^6/uL (4.0-5.20); Red Cell Distribution Width 18.5 % (11.8-14.3); White Blood Cell 9.8 10^3/uL (4.4-10.8)
[2019-06-20] MEDS ORDERED: SODIUM CHLORIDE 0.9% 500 ML IV ONE ×3 (05:30→17:30)
[2019-06-20 05:43] LABS: Albumin 1.3 g/dL (3.4-5.0); Calcium 7.3 mg/dL (8.5-10.1); INR 1.08 (0.9-1.15); Partial Thromboplastin Time 33.6 sec (23.64-32.05); Potassium 4.3 mmol/L (3.5-5.1)
[2019-06-20 05:45] LABS: BUN/Creatinine Ratio 16.7
[2019-06-20 05:48] LABS: Bilirubin, Total 0.3 mg/dL (0.2-1.0); Total Protein 5.4 g/dL (6.4-8.2)
--- NOTE | 2019-06-20 07:14 | NUR ---
Respiratory note: ASSESSED PT FOR PRN TREATMENT. PT IS AWAKE, ALERT AND RESPONSIVE. FOUND PT ON 2 LPM NC SP02 100%. PT IS IN NO DISTRESS AT THIS TIME. DECREASED 02 TO 1 LPM AND SP02 99%. BS ARE DIMINISHED. NO TREATMENT INDICATED AT THIS TIME. INFORMED PT IF BECOMES SOB TO PRESS CALL LIGHT AND RT WILL BE PAGED.
--- NOTE | 2019-06-20 07:45 | NUR ---
Morning note patient resting in bed with even and unlabored respirations, no distress noted. Instructed patient on POC, fall precautions, pressure ulcer precautions, and to call for assistance. Patient verbalized understanding. Fall precautions in place with call light within reach, bed in lowest locked position. Will continue to monitor q1hr & PRN.
[2019-06-20] MEDS: Ensure Enlive Chocolate 8oz Bottle PO SCH ×2 (08:00→18:00)
[2019-06-20] MEDS: Pro-Stat SF 30ml Vanilla PO SCH ×2 (08:00→18:00)
--- NOTE | 2019-06-20 08:13 | NUR ---
Called Dr. Caputo to notify MD BP/labs Called Dr. Caputo to notify MD that patient's BP is 83/41 mmHG MAP 58, HR 63 bpm; HGB 7.5; Creatine 2.70. Spoke with Melody. Patient resting in bed with even and unlabored respirations, no distress noted.
--- NOTE | 2019-06-20 08:27 | NUR ---
Updated Fabrication Mig Welder - Dr. Cabrera Updated MD on patient's recent BP, HR, CREA, HGB and scheduled procedure as well as Dr. Caputo's recommendation/plan. MD verbalized understanding. Orders received and read back to verify.
--- NOTE | 2019-06-20 09:06 | NUR ---
Family member called for update Patient's son, Lv, called for an update. Password obtained. Update given.
[2019-06-20 09:10] VITALS: BP 83/41
[2019-06-20] MEDS ORDERED: ASPirin-EC 81 mg tab PO ONE (11:15)
[2019-06-20] MEDS: SODIUM CHLORIDE 0.9% 1,000 ML IV SCH ×2 (11:15→21:15)
[2019-06-20 11:23] VITALS: BP 77/31
[2019-06-20] MEDS: LINEZOLID 600MG/300ML 300 ML IV SCH ×3 (12:00→23:42)
[2019-06-20] MEDS: MIDODRINE HCL 10 MG TAB PO SCH ×2 (12:00→18:47)
[2019-06-20] MEDS: PANTOPRAZOLE 40 MG TAB PO SCH ×2 (12:00→21:31)
--- NOTE | 2019-06-20 12:20 | NUR ---
Patient returned to bed with 2-person assist from physical therapy assistants. Patient tolerated okay. Patient reported pain in BLE. Patient refused PRN pain medication. Repositioned patient for comfort. Fall precautions in place with bed in lowest locked position with call light within reach. Dressing to the sacrum and right posterior thigh changed per MD order.
--- NOTE | 2019-06-20 12:37 | NUR ---
IV infiltrated - order received IV infiltrated after initiation of scheduled IV antibiotic. IV removed with clean technique, catheter intact. Dressing applied. Patient tolerated well, no trauma to site. Angelic, conveyor line battery charger, attempted to initiate new IV access. Unable to obtain. Order received and read back to verify.
[2019-06-20 12:55] VITALS: BP 111/63
--- NOTE | 2019-06-20 14:30 | NUR ---
IV initiated 22G IV started in the RFA with clean technique. IV secured. IV education provided to the patient. Patient verbalized understanding. Ordered IV medication resumed. Addendum: 06/20/19 at 1654 by Francheska Levy RN IV initiated by bob Atwood RN.
--- NOTE | 2019-06-20 15:20 | NUR ---
D/C Planning Per SS consult for SNF Placement for physical therapy, wound care and medication management. Information and choice letter was given to Pt at bedside. Pt stated she does not want to go to a SNF and she would like to go home with home health. Advised SS Joi.
--- NOTE | 2019-06-20 16:19 | NUR ---
Patient resting in bed with even and unlabored respirations, no distress noted. Fall precautions in place with bed in lowest locked position, x2 side rails up, call light within reach and bed alarm on for safety. Will continue to monitor q1hr & PRN.
--- NOTE | 2019-06-20 16:57 | NUR ---
Paged RE: urinary output Paged Dr. Hairston to notify of patient's urinary output of 100ml for 12 hours.
[2019-06-20 16:59] VITALS: BP 96/45
--- NOTE | 2019-06-20 17:15 | NUR ---
Notified Dr. Hairston of urinary output MD verbalized understanding. Patient status discussed. Orders received and read back to verify.
[2019-06-20] MEDS ORDERED: FUROSEMIDE 40 MG/4 ML VIAL IV ONE (17:30)
--- NOTE | 2019-06-20 17:54 | NUR ---
Notified Dr. Cabrera of urinary output MD verbalized understanding. Ordered to continue to monitor.
--- NOTE | 2019-06-20 18:30 | NUR ---
called for update - Dr. Hairston Update given to Dr. Hairston after administration of 500ml NS bolus and ordered one time dose of Lasix IV. Urinary output 36ml. MD verbalized understanding. Patient's respirations even and unlabored, no distress noted. Visitors at bedside.
--- NOTE | 2019-06-20 19:02 | NUR ---
Closing note Patient resting in bed with even and unlabored respirations, no distress noted. Fall precautions in place with bed in lowest locked position with call light within reach. Bed alarm on for safety.
--- NOTE | 2019-06-20 19:30 | NUR ---
Care endorsed to BLANCO Puga.
--- NOTE | 2019-06-20 19:40 | NUR ---
assumed care, pt. awake, relatives at bedside, no c/o pain, not in distress.
[2019-06-20] MEDS: ATORVASTATIN 20 MG TAB PO SCH (21:31)
[2019-06-20 22:00] VITALS: BP 116/47
[2019-06-20] MEDS: ALBUTEROL SULF 2.5 MG/0.5ML(0.5%) NEB SOLN NEB PRN (22:50)
[2019-06-21] VITALS (17 sets, daily range): BP systolic 91–144; BP diastolic 33–97
--- NOTE | 2019-06-21 02:00 | NUR ---
dressing changed on bilat lower extremities as per md order.
[2019-06-21] MEDS: MIDODRINE HCL 10 MG TAB PO SCH ×2 (05:32→11:41)
[2019-06-21 06:14] LABS: Hematocrit 23.9 % (36.0-46.0); Hemoglobin 7.7 g/dL (12.2-16.2)
[2019-06-21 06:37] LABS: BUN/Creatinine Ratio 15.8; Calcium 7.4 mg/dL (8.5-10.1)
--- NOTE | 2019-06-21 07:54 | NUR ---
Paged RT for breathing treatment per MD order Patient has expiratory wheezes noted. Unable to speak in full sentences and unable to lay flat during position change. Accessory muscle use noted. Patient is using pursed-lip breathing. Patient was on 2 LPM NC. Supplemental oxygen titrated to 4 LPM NC. Will continue to monitor PRN.
[2019-06-21] MEDS: Pro-Stat SF 30ml Vanilla PO SCH ×2 (08:00→18:53)
[2019-06-21] MEDS: Ensure Enlive Chocolate 8oz Bottle PO SCH ×2 (08:00→18:52)
[2019-06-21] MEDS: ALBUTEROL SULF 2.5 MG/0.5ML(0.5%) NEB SOLN NEB PRN ×2 (08:01→20:01)
--- NOTE | 2019-06-21 09:20 | NUR ---
Patient had BM Patient had a large, loose brown BM with no red noted. Patient cleansed. Dressings to the right posterior thigh and sacrum replaced per MD order. Patient tolerated okay with moderate pain reported during position change and cleansing. Patient refused pain medication. Patient repositioned for comfort. Bed in lowest locked position with x2 side rails up and call light within reach. Respirations even and unlabored, no distress noted. Bed alarm on for safety.
[2019-06-21] MEDS ORDERED: FUROSEMIDE 100 MG/10ML VIAL IV ONE (09:30)
[2019-06-21] MEDS ORDERED: LEVOFLOXACIN 500MG 100 ML IV SCH (10:00)
[2019-06-21] MEDS: PANTOPRAZOLE 40 MG TAB PO SCH ×2 (10:07→22:30)
[2019-06-21] MEDS: LINEZOLID 600MG TABLET PO SCH ×2 (10:08→22:30)
[2019-06-21] MEDS: ASPirin-EC 81 mg tab PO SCH (10:08)
--- NOTE | 2019-06-21 11:53 | NUR ---
was at bedside - Dr. Hairston Patient to be transferred to [facility] per . Addendum: 06/21/19 at 1214 by Francheska Levy RN Dr. Hairston updated patient's son, Lv.
--- NOTE | 2019-06-21 12:13 | NUR ---
at bedside - Dr. Cote
--- NOTE | 2019-06-21 12:26 | NUR ---
Hand-off report given to NATALIE Domingo RN.
[2019-06-21] MEDS ORDERED: FUROSEMIDE INJECTION 250 MG in D5W 5% 225 ML IV SCH (12:30)
--- NOTE | 2019-06-21 12:40 | NUR ---
Transfer to NATALIE VANESSA GOMEZ transferred to NATALIE via hospital bed on child monitor, and portable 02. Patient connected to unit monitoring and oxygen, and weighed by bedscale. Patient oriented to DRU TEJEDA RN primary RN, unit, room, bed, and unit policies regarding patient care and visiting hours. All questions and concerns addressed, patient verbalized understanding.
--- NOTE | 2019-06-21 12:46 | NUR ---
Patient transferred to room 262 via hospital bed. Respirations even and unlabored, no distress noted. All personal belongings transferred with the patient.
--- NOTE | 2019-06-21 12:51 | NUR ---
Telemonitor removed and returned to the telemonitor tech.
[2019-06-21 13:05] LABS: BUN/Creatinine Ratio 14.6; Calcium 7.6 mg/dL (8.5-10.1); Magnesium 2.3 mg/dL (1.6-2.6); Potassium 4.1 mmol/L (3.5-5.1)
--- NOTE | 2019-06-21 13:10 | NUR ---
IV insertion IV access obtained, via clean sterile technique by inserting 22 gauge catheter at right forearm after 1 attempt. IV secured properly. No trauma to site. Patient tolerated procedure well.
--- NOTE | 2019-06-21 13:20 | NUR ---
Assisted patient with feeding Lunch, had just fruit, no N/V noted.
[2019-06-21] MEDS ORDERED: DOPamine 1600MCG/ML D5W 250 ML IV SCH (13:30)
--- NOTE | 2019-06-21 13:30 | NUR ---
Dr. Hairston at the bedside, seen and examined patient at this time, received order for start Dopamine iv 2.5 mcg/kg/min. Received a call from Dr. Bran, alexa strict with I/O.
[2019-06-21] MEDS: SODIUM BICARBONATE 650 MG TAB PO SCH ×2 (13:53→22:30)
[2019-06-21 13:57] LABS: % Iron Saturation 20.5 % (15-50)
--- NOTE | 2019-06-21 14:40 | NUR ---
After started Dopamine as order, HR increased to 70-100 with A. fib, BP 134/60 mmHg, and also N/V, Dr. Hairston made aware. Received order to hold Dopamine. Patient refused NTG SL, Zofran IV for N/V, patient stated that the pill I gave made her vomited. Will continue to monitor and care. Addendum: 06/21/19 at 1600 by DRU TEJEDA RN RN Patient also complaining pressure on the chest, RN for Mid line at the bedside at this time and patient refused because still feeling N/V and like chest pain, refused Nitrostat SL, refused EKG.
[2019-06-21] MEDS ORDERED: NTG 0.1MG/HR TOPICAL PATCH TD ONE (16:00)
--- NOTE | 2019-06-21 16:00 | NUR ---
Her families at the bedside, called and talked to securities supervisor made aware that patient wants to get her belonging and money in safety box and give it to her son. HR 60 /min, BP 111/48 mmHg, but still has pressure and pain on the chest, still refused Nitrostat SL, Dr. Hairston made aware, received order for Nitrodur 0.1 mg/hr TD once time and Meat Cutter consult for chest pain, repeat Troponin level, will continue to monitor BP and care. Patient and her families made aware.
--- NOTE | 2019-06-21 16:30 | NUR ---
Joana WATERMELON HARVESTING SUPERVISOR at the bedside for Neurology Physician Assistant consultation for chest pain, seen and examined patient at this time. Her families at the bedside as well.
--- NOTE | 2019-06-21 16:59 | NUR ---
Patient's PCP contact number Dr. Bradley Mariano in [place], [place] [phone]
--- NOTE | 2019-06-21 17:12 | NUR ---
Received a call from Dr. Shalini MD made aware about urine out put after started Lasix iv as ordered (around 250ml), and made aware about BP, SBP 90-110 mmHg, will continue Lasix iv drip as ordered.
--- NOTE | 2019-06-21 18:34 | NUR ---
The office of Dr. Bradley Mariano is close at this time (open from 8AM-5PM), try to get the FAX number. Will check again tomorrow. Called [facility] in [place] ([phone] by her son provided) also nobody answer a call at this time, will check again tomorrow regarding her medical record about Coronary Angiogram around Nov-Dec, 2018.
--- NOTE | 2019-06-21 19:13 | NUR ---
OPENING SHIFT RECEIVED REPORT FROM DAY SHIFT RN. ASSUMED CARE OF PATIENT. PATIENT IN BED TALKING WITH FAMILY AT THE BEDSIDE, NO SIGNS OR SYMPTOMS OF SOB, PAIN OR DISTRESS. CURRENTLY ON 4L 02 NASAL CANNULA, 02 SAT - 100%. X2 RIGHT FOREARM IV - CLEAN/DRY/INTACT. MORALES HUNG TO GRAVITY ON BED RAIL. UPDATED PATIENT ON PLAN OF CARE. REPOSITIONED FOR COMFORT. BED IN LOWEST POSITION, SIDE RAILS UP X2, CALL LIGHT WITHIN REACH. WILL CONTINUE TO MONITOR.
--- NOTE | 2019-06-21 21:51 | NUR ---
Midline Placement: Patient educated on need for midline placement. All risks and benefits explained and all questions and concerns addresses prior to procedure. 18g/10cm midline inserted via LEFT BASILIC vein using Ultrasound. Sterile technique utilized. Blood return obtained from SINGLE lumen and flushed easily with NS using proper technique. Midline secured with saline lock; biodisc and occlusive dressing applied. Primary RN notified. Midline lot #[id number].
[2019-06-21] MEDS: ATORVASTATIN 20 MG TAB PO SCH (22:30)
--- NOTE | 2019-06-21 22:40 | NUR ---
CHEST PAIN PATIENT COMPLAINING OF CHEST PAIN AND REFUSED 2200 MEDICATION. EKG PERFORMED - SHOWING SINUS BRADYCARDIA WITH 1ST DEGREE AV BLOCK WITH PREMATURE ATRIAL COMPLEXES, LEFT BUNDLE BRANCH BLOCK. HOSPITALIST PAGED. AWAITING CALL BACK.
--- NOTE | 2019-06-21 23:15 | NUR ---
HOSPITALIST HOSPITALIST CALLED BACK AND GAVE NEW ORDERS. WILL CONTINUE TO MONITOR.
[2019-06-21] MEDS ORDERED: MORPHINE SULF INJ 2 MG/ML SYRINGE 1ML IV PRN (23:30)
[2019-06-21] MEDS ORDERED: MORPHINE SULFATE 4 MG/ML SYR/VIAL IV ONE (23:30)
--- NOTE | 2019-06-21 23:40 | NUR ---
MEDICATION REFUSAL PATIENT REFUSED MORPHINE. EDUCATED PATIENT CHEST PAIN AND MEDICATIONS THAT ALLEVIATE CHEST PAIN SUCH MORPHINE. PATIENT CONTINUES TO REFUSE. MORPHINE HELD. WILL CONTINUE TO MONITOR.
[2019-06-21] MEDS ORDERED: MORPHINE SULFATE 4 MG/ML SYR/VIAL ONE (23:49)
[2019-06-22] VITALS (15 sets, daily range): BP systolic 96–158; BP diastolic 39–87
[2019-06-22] MEDS: SODIUM BICARBONATE 650 MG TAB PO SCH ×3 (06:00→21:54)
[2019-06-22 06:21] LABS: Basophils # (auto) 0 uL; Basophils % (auto) 0.4 % (0.0-2.0); Eosinophils # (auto) 0.1 uL; Hematocrit 24.2 % (36.0-46.0); Hemoglobin 8.2 g/dL (12.2-16.2); Lymphocytes # (auto) 0.7 uL; Lymphocytes % (auto) 6.7 % (10.0-50.0); Mean Corpuscular Hemoglobin 30.2 pg (28.0-32.0); Mean Corpuscular Volume 88.8 fL (80.0-100.0); Monocytes # (auto) 1.3 uL; Neutrophils # (auto) 8.1 uL; Neutrophils % (auto) 78.9 % (37.0-80.0); Platelet Count (auto) 356 10^3/uL (140-450); Red Blood Cells 2.72 10^6/uL (4.0-5.20); Red Cell Distribution Width 19.5 % (11.8-14.3); White Blood Cell 10.3 10^3/uL (4.4-10.8)
[2019-06-22] MEDS ORDERED: LEVOFLOXACIN 250MG 50 ML IV SCH (07:00)
--- NOTE | 2019-06-22 07:15 | NUR ---
END OF SHIFT REPORT GIVEN TO DAY SHIFT RN. CARE ENDORSED.
--- NOTE | 2019-06-22 08:30 | NUR ---
Opening Shift Note Assumed care of patient @ 0745, awake and alert. SOB on exertion, patient on 4 LPM oxygen via nasal cannula, saturation 100%. Complains of LT chest pain 2/10 and verbalized "Since they placed, this (pointing to her LT upper arm midline) my chest has been hurting. See interventions for complete assessment. Bed locked on low position, side rails up x2, bed alarms on at all times, call welch within reach, instructed on POC and to call for assist PRN, will continue to monitor for changes Q1hr and PRN.
[2019-06-22] MEDS: PANTOPRAZOLE 40 MG TAB PO SCH ×2 (09:56→21:53)
[2019-06-22] MEDS: ASPirin-EC 81 mg tab PO SCH (09:56)
[2019-06-22] MEDS: Pro-Stat SF 30ml Vanilla PO SCH ×2 (09:56→17:53)
[2019-06-22] MEDS: Ensure Enlive Chocolate 8oz Bottle PO SCH ×2 (09:56→17:53)
[2019-06-22] MEDS: LINEZOLID 600MG TABLET PO SCH ×2 (09:57→21:54)
--- NOTE | 2019-06-22 09:58 | NUR ---
Dr Hairston at bedside, updated on patient's status. Patient seen and examined. Will carry out new orders.
--- NOTE | 2019-06-22 10:00 | NUR ---
Patient had moderate amount of soft bowel movement, given perineal care. Skin integrity assessed for any changes, skin tears on sacrum and thighs cleansed, z guard applied and optifoam changed. Patient repositioned for comfort.
--- NOTE | 2019-06-22 10:05 | NUR ---
Respiratory note: PT IS NOT SHOWING ANY SIGNS OF RESPIRATORY DISTRESS AT THIS TIME. HHN TX NOT INDICATED AT THIS TIME. SPO2 97 ON 3L NC HR 64 RR 17 BC CLEAR THROUGHOUT. PT EDUCATED ON USE OF NURSE CALL BUTTON IN THE EVENT THAT SHE FEELS SOB.
--- NOTE | 2019-06-22 10:25 | NUR ---
Zulema ORTHOTIC TECHNICIAN at bedside, updated on patient's status. Informed patient has been complaining of LT chest pain. Patient seen and examined. Will carry out new orders.
--- NOTE | 2019-06-22 11:30 | NUR ---
Received patient's Medical Record from [facility], inserted to chart.
[2019-06-22 11:44] LABS: BUN/Creatinine Ratio 13.8; Calcium 7.9 mg/dL (8.5-10.1); Potassium 3.8 mmol/L (3.5-5.1)
--- NOTE | 2019-06-22 13:50 | NUR ---
Patient started throwing up after eating lunch, vomited about 200 ml of Glucerna Shake. Refused to have any anti nausea medicine at this time. Will continue to monitor.
--- NOTE | 2019-06-22 14:06 | NUR ---
Nutrition Follow-up Notes Wt.: 77.4 kg as yesterday. Noted 4.2 kg weight gain in last 3 days likely d/t ? fluid retention aeb positive I & Os for past few days. Pt's on oxygen via nasal cannula, asleep in isolation room, no immediate family member at bedside during rounds this morning. Pt's no signs of distress noted earlier, currently on 2 gm Na diet with Ensure Enlive 1 carton BID and Prostat 1 pkt BID, has adequate PO intake aeb 75% ave. consumed meals (x6) in last 2.5 days. Noted pt's for active Cardiology consult. Est. Needs: 1350 kcal to 1700 kcal (20-25 kcal/kgBW), 54 gms to 68 gms pro (0.8-1.0 gms/kgBW). Will continue to monitor pertinent labs and reassess nutrient need prn Labs: Cl 109 H, CO2 18 L, BUN 46 H, Cr 3.33 H, Ca 7.9 L, Alb 1.4 L Skin: Hansel scale 13, mod risk, pt's with pressure ulcer sacrum per advance seal delivery system maintainer. Pls refer to traffic control supervisor's notes for further details re: tx plans. GI: Pt had 1 BM last 06/20/19 per advance seal delivery system maintainer. PES: Altered nutrition related lab values r/t current/chronic medical condition aeb hyperchloremia, elev. renal labs, hypocalcemia and severe hypoalbuminemia Will continue to monitor PO intake, skin status, pertinent labs and weight trend. F/u in 3 to 5 days. Rec.: 1.) Consider enter order for daily MVI with minerals and Asc acid 500 mgs BID, already e-signed approved by ). 2.) If renal labs continue trending up, consider Renal Specific: 60 gms pro, 2 gms Na diet. 3.) Consider close supervision and feeding assistance prn during meals. 4.) Refer to RD for further nutrition educ. and weight monitoring upon discharge. 5.) Continue current plan of care.
--- NOTE | 2019-06-22 16:23 | NUR ---
PT 1st attempt pt said she was too tired to do P.T 2nd attempt pt was vomiting in bed. Mina Sidhu was notified. Addendum: 06/22/19 at 1624 by FRANK JACOME PTT Amended: Links added.
[2019-06-22] MEDS: FUROSEMIDE 40 MG/4 ML VIAL IV SCH (17:53)
--- NOTE | 2019-06-22 19:20 | NUR ---
Opening Shift Note Received report on DNR rosaura patient. A&Ox4 following, on 4L NC stating 95-100% Spo2. No complaints of chest pain. SR 59-70's w/ BBB. Assessed swallowing ability with ice chips and patient tolerated well. bilateral legs are wrapped with medipore tape and elevated on pillows. Stephen Rao at bedside and updated on plan of care w/ patient. [place] phone number [phone]. For more information see interventions. Bed locked and in lowest position, 3x side rails up and call light within reach.
--- NOTE | 2019-06-22 19:45 | NUR ---
Family at bedside son and friend at bedside. updated on patient status and answered all questions.
[2019-06-22] MEDS: ATORVASTATIN 20 MG TAB PO SCH (21:54)
[2019-06-23] VITALS (8 sets, daily range): BP systolic 88–158; BP diastolic 39–87
--- NOTE | 2019-06-23 04:00 | NUR ---
Complete bed bath given one liquid stool was cleaned. skin reassessed and no new break down noted. patient tolerated well.
[2019-06-23] MEDS: FUROSEMIDE 40 MG/4 ML VIAL IV SCH (06:46)
[2019-06-23] MEDS: SODIUM BICARBONATE 650 MG TAB PO SCH ×3 (06:47→22:19)
[2019-06-23] MEDS: LEVOFLOXACIN 250MG 50 ML IV SCH (06:47)
[2019-06-23 06:54] LABS: Calcium 8.1 mg/dL (8.5-10.1); Potassium 3.9 mmol/L (3.5-5.1)
[2019-06-23 06:55] LABS: BUN/Creatinine Ratio 13.1
--- NOTE | 2019-06-23 08:00 | NUR ---
Opening Shift Note Assumed care of patient, awake and alert. Patient A&Ox4. Patient on the monitor. Patient on 4L NC saturation at 100%. IV right forearm 22G saline locked and left upper arm midline saline locked, both IV's patent, clean, dry, and intact. IV right forearm 20G red and tender, IV removed, catheter intact upon removal, pressure dressing placed. Padilla to gravity. Dressing bilateral lower legs clean, dry, and intact. No S/S of distress/SOB or pain. Instructed on POC and to call for assist. Bed locked and in the lowest position, side rails up x2, call light with in reach. Will continue to monitor.
--- NOTE | 2019-06-23 08:30 | NUR ---
Patient sitting up in bed eating breakfast independently. Will continue to monitor.
[2019-06-23] MEDS: Pro-Stat SF 30ml Vanilla PO SCH ×2 (08:47→18:21)
[2019-06-23] MEDS: Ensure Enlive Chocolate 8oz Bottle PO SCH ×2 (08:47→18:20)
[2019-06-23] MEDS ORDERED: LEVOFLOXACIN 250MG 50 ML IV SCH ×2 (10:00)
--- NOTE | 2019-06-23 10:00 | NUR ---
Medication dosages, usages, and side effects explained to patient. Patient verbalized understanding. Will continue to monitor.
[2019-06-23] MEDS: PANTOPRAZOLE 40 MG TAB PO SCH ×2 (10:07→22:20)
[2019-06-23] MEDS: ASPirin-EC 81 mg tab PO SCH (10:07)
[2019-06-23] MEDS: LINEZOLID 600MG TABLET PO SCH ×2 (10:07→22:19)
[2019-06-23] MEDS ORDERED: FUROSEMIDE INJECTION 100 MG in D5W 5% 90 ML IV SCH (11:30)
--- NOTE | 2019-06-23 12:30 | NUR ---
Patient sitting up in bed eating lunch independently. Will continue to monitor.
[2019-06-23] MEDS: FUROSEMIDE INJECTION 100 MG in D5W 5% 90 ML IV SCH ×2 (12:54→19:40)
[2019-06-23] MEDS ORDERED: ALBUMIN 25% 100 ML IV ONE (13:15)
--- NOTE | 2019-06-23 14:00 | NUR ---
PT assisted patient to bedside chair. Patient tolerating. Will continue to monitor.
--- NOTE | 2019-06-23 14:55 | NUR ---
PT assisted patient back to bed. Patient resting at this time. Will continue to monitor.
--- NOTE | 2019-06-23 16:30 | NUR ---
Patient resting at this time. No S/S of pain/SOB or distress. Will continue to monitor.
[2019-06-23] MEDS ORDERED: POTASSIUM CHL 20 Meq TABLET PO ONE ×2 (18:00→18:24)
[2019-06-23] MEDS: ALBUTEROL SULF 2.5 MG/0.5ML(0.5%) NEB SOLN NEB PRN (18:19)
--- NOTE | 2019-06-23 18:30 | NUR ---
End of shift note: Patient sitting up in bed eating dinner independently. Patient A&Ox4. Patient on the monitor. Patient on 4L NC saturation at 100%. IV right forearm 22G saline locked and left upper arm midline saline locked, both IV's patent, clean, dry, and intact. Padilla to gravity. Dressing bilateral lower legs clean, dry, and intact. No S/S of distress/SOB or pain. Bed locked and in the lowest position, side rails up x2, call light with in reach. Report to be given to assistant district attorney RN. Will continue to monitor.
--- NOTE | 2019-06-23 20:00 | NUR ---
Opening Shift Note Assumed care of patient, awake and alert, sitting in bed, continue eating dinner. Breathing on O2NC 4LPM, tachypneic, nonlabored, No S/S of distress or pain. Mid-line on left upper arm, CDI site. 22G IV on right FA, infusing Lasix, CDI site. Padilla's catheter hung to gravity, with clear yellowish urine. Bed in low position, call light within reach, all alarms are audible, fall and safety precaution in place. Instructed on POC and to call for assist PRN, will continue to monitor for changes Q1hr and PRN.
--- NOTE | 2019-06-23 22:00 | NUR ---
Condition update Pt resting on bed, mild SOB on exertion, O2sat 100%. Occasional coughing. Ate Jell-o by self on bed. Continue care.
[2019-06-23] MEDS: ATORVASTATIN 20 MG TAB PO SCH (22:20)
[2019-06-24] VITALS (7 sets, daily range): BP systolic 93–124; BP diastolic 36–55
--- NOTE | 2019-06-24 01:49 | NUR ---
Condition update V/S and condition stable, still labile BP, Pt sleeping. Breathing even and nonlabored, pox 100%. Continue care.
--- NOTE | 2019-06-24 04:10 | NUR ---
Elimination Pt has incontinence, Pt passed a loose moderate amount of green/ yellowish stool. Zeenat rectal cleaned, wound d/s cleaned with wound cleanser and NS irrigants, z-guard applied, Optifoams changed. Pt refused full bath. Perineum care and Padilla's cath care done. Reposition for comfort and to prevent pressure ulcer. Tolerated fairly, SOB with exertion and audible wheezing. Continue care.
[2019-06-24] MEDS: FUROSEMIDE INJECTION 100 MG in D5W 5% 90 ML IV SCH ×2 (04:27→16:43)
[2019-06-24 04:50] LABS: Basophils # (auto) 0 uL; Basophils % (auto) 0.4 % (0.0-2.0); Eosinophils # (auto) 0.4 uL; Eosinophils % (auto) 3.8 % (0.0-7.0); Hematocrit 22.8 % (36.0-46.0); Hemoglobin 7.7 g/dL (12.2-16.2); Lymphocytes # (auto) 0.8 uL; Lymphocytes % (auto) 8.3 % (10.0-50.0); Mean Corpuscular Hemoglobin 29.9 pg (28.0-32.0); Mean Corpuscular Hgb Conc. 33.6 g/dL (32.0-36.0); Mean Corpuscular Volume 88.9 fL (80.0-100.0); Monocytes % (auto) 10.3 % (0.0-12.0); Neutrophils # (auto) 7.7 uL; Neutrophils % (auto) 77.2 % (37.0-80.0); Platelet Count (auto) 243 10^3/uL (140-450); Red Blood Cells 2.57 10^6/uL (4.0-5.20); Red Cell Distribution Width 18.2 % (11.8-14.3)
[2019-06-24 05:10] LABS: BUN/Creatinine Ratio 13.4; Calcium 7.9 mg/dL (8.5-10.1); Potassium 3.9 mmol/L (3.5-5.1)
[2019-06-24] MEDS: SODIUM BICARBONATE 650 MG TAB PO SCH ×2 (05:52→23:31)
--- NOTE | 2019-06-24 06:45 | NUR ---
Elimination Pt called and asked for a bedpan. Pt passed a large amount of loose brown stool. Perirectal cleaned, wound d/s done, Optifoam changed. Re-positioned, tolerated fairly, continue care.
[2019-06-24] MEDS: Ensure Enlive Chocolate 8oz Bottle PO SCH ×2 (08:00→18:00)
[2019-06-24] MEDS: Pro-Stat SF 30ml Vanilla PO SCH ×2 (08:00→18:00)
--- NOTE | 2019-06-24 08:00 | NUR ---
Opening Shift Note Assumed care of patient, awake and alert. No S/S of pain. SOB on exertion with inspiratory and expiratory wheezes, oxygen saturation 100% on 4 LPM oxygen via nasal cannula. See interventions for complete assessment. Bed locked on low position, side rails up x2, bed alarms on at all times, call welch within reach, instructed on POC and to call for assist PRN, will continue to monitor for changes Q1hr and PRN.
[2019-06-24] MEDS ORDERED: ALBUMIN 25% 100 ML IV ONE (08:45)
[2019-06-24] MEDS: LINEZOLID 600MG TABLET PO SCH ×2 (09:56→23:32)
[2019-06-24] MEDS: ASPirin-EC 81 mg tab PO SCH (09:57)
[2019-06-24] MEDS: PANTOPRAZOLE 40 MG TAB PO SCH ×2 (09:57→23:32)
[2019-06-24] MEDS: ALBUTEROL SULF 2.5 MG/0.5ML(0.5%) NEB SOLN NEB PRN ×2 (10:44→22:07)
[2019-06-24] MEDS ORDERED: BUDESONIDE (INHALATION) 0.5 MG/2 ML NEB ONE (10:47)
--- NOTE | 2019-06-24 10:57 | NUR ---
Dr Hairston at bedside, updated on patient's status. Patient seen and examined. Will carry out new orders.
[2019-06-24] MEDS ORDERED: BUDESONIDE (INHALATION) 0.5 MG/2 ML NEB NEB ONE (11:00)
--- NOTE | 2019-06-24 13:10 | NUR ---
WOUND CARE NOTE: IN TO SEE PATIENT AT THIS TIME FOR SKIN INTEGRITY. PATIENT HAS CURRENT SHANTELLE SCORE OF 13. SHE CONTINUES TO HAVE MASD WITH SKIN EROSION TO SACRUM/BUTTOCKS, BILATERAL POSTERIOR UPPER THIGHS. STAGE 2 PRESSURE ULCER CONTINUES TO BE AT INTRAGLUTEAL FOLD. APPLIED ZGUARD AND OPTIFOAM GENTLE DRESSINGS TO OPEN WOUNDS. 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 WOUND IS HEALING WELL. LEFT POSTERIOR CALF IS HYPERKERATOTIC, WITH WEEPING SEROUS DRAINAGE. APPLIED THERAHONEY, OPTIFOAM DRESSING TO RIGHT ANTERIOR TRIVEDI WOUND, APPLIED 3 LAYER COMPRESSION UNNAH BOOT TO BILATERAL LEGS PER MD ORDER. ELEVATED BOTH LEGS UP ONTO PILLOWS FOR EDEMA CONTROL. PATIENT TOLERATED DRESSING CHANGES WELL, NOTING NO PAIN BY PATIENT. SKIN/WOUND CARE PLAN UPDATED. RECOMMEND: CONTINUATION WITH ALL WOUND CARE ORDERS PREVIOUSLY PRESCRIBED BY MD. WOUND CARE TEAM WILL CONTINUE TO MONITOR. Addendum: 06/24/19 at 1747 by Ariane Mace RN Amended: Links added.
--- NOTE | 2019-06-24 13:30 | NUR ---
BLE dressing changed. Cleansed with wound cleanser, pat dry with gauze, wrapped with unna boots and pam wrap. Patient tolerated well.
[2019-06-24] MEDS: methylPREDNISolone SOD SUCC 40 MG/ML VL IV SCH ×2 (13:46→23:29)
--- NOTE | 2019-06-24 15:01 | NUR ---
PT REFUSED PHYSICAL THERAPY TODAY. BLANCO GOMEZ WAS NOTIFIED. Addendum: 06/24/19 at 1502 by FRANK JACOME PTT Amended: Links added.
[2019-06-24] MEDS: BUDESONIDE (INHALATION) 0.5 MG/2 ML NEB NEB SCH (22:07)
[2019-06-24] MEDS: ATORVASTATIN 20 MG TAB PO SCH (23:32)
[2019-06-25] MEDS: FUROSEMIDE INJECTION 100 MG in D5W 5% 90 ML IV SCH ×2 (02:34→13:39)
[2019-06-25 04:00] VITALS: BP 112/51
[2019-06-25 05:16] LABS: BUN/Creatinine Ratio 13.4; Calcium 8.3 mg/dL (8.5-10.1); Potassium 3.9 mmol/L (3.5-5.1)
[2019-06-25 08:00] VITALS: BP 103/52
[2019-06-25] MEDS: Ensure Enlive Chocolate 8oz Bottle PO SCH ×2 (08:00→17:48)
--- NOTE | 2019-06-25 08:00 | NUR ---
Opening Shift Note Assumed care of patient, awake and alert. No S/S of distress/SOB or pain. Patient saturation 100% on 4 LPM oxygen via nasal cannula. See interventions for compete assessment. Bed locked on low position, side rails up x2, bed alarms on at all times, call welch within reach, instructed on POC and to call for assist PRN, will continue to monitor for changes Q1hr and PRN.
[2019-06-25] MEDS: methylPREDNISolone SOD SUCC 40 MG/ML VL IV SCH ×2 (08:06→13:38)
[2019-06-25] MEDS: LEVOFLOXACIN 250MG 50 ML IV SCH (08:06)
[2019-06-25] MEDS: BUDESONIDE (INHALATION) 0.5 MG/2 ML NEB NEB SCH ×2 (08:15→19:54)
[2019-06-25] MEDS: Pro-Stat SF 30ml Vanilla PO SCH ×2 (08:55→17:48)
--- NOTE | 2019-06-25 09:35 | NUR ---
Dr Henson at bedside, updated on patient's status. Patient seen and examined. Will carry out new orders.
--- NOTE | 2019-06-25 10:09 | NUR ---
Dr Marquez at bedside, updated on patient's status. Patient seen and examined. Will carry out new orders.
[2019-06-25] MEDS: PANTOPRAZOLE 40 MG TAB PO SCH (10:12)
[2019-06-25] MEDS: SODIUM BICARBONATE 650 MG TAB PO SCH (10:12)
[2019-06-25] MEDS: ASPirin-EC 81 mg tab PO SCH (10:12)
[2019-06-25] MEDS: LINEZOLID 600MG TABLET PO SCH (10:12)
--- NOTE | 2019-06-25 10:45 | NUR ---
Patient out of bed to bedside chair with Ha PELAEZ, fall precautions in placed. Patient tolerated well.
--- NOTE | 2019-06-25 11:44 | NUR ---
Nutrition Follow-up Notes Wt.: 75.4 kg Pt's sleeping with no immediate family member at bedside during rounds this morning. Pt's no signs of distress noted earlier, currently on 2 gm Na diet with Ensure Enlive 1 carton BID and Prostat 1 pkt BID, with inadequate PO of < 50% x 5 per RN doc Est. Needs: 1350 kcal to 1700 kcal (20-25 kcal/kgBW), 54 gms to 68 gms pro (0.8-1.0 gms/kgBW). Will continue to monitor pertinent labs and reassess nutrient need prn Labs: Cl 109 H, CO2 18 L, BUN 46 H, Cr 3.33 H, Ca 7.9 L, Alb 1.4 L Skin: Hansel scale 13, mod risk, pt's with pressure ulcer sacrum per clinical documentation manager. Pls refer to hot wound spring production supervisor's notes for further details re: tx plans. GI: Pt had 1 BM yesterday per clinical documentation manager. PES: Altered nutrition related lab values r/t current/chronic medical condition aeb hyperchloremia, elev. renal labs, hypocalcemia and severe hypoalbuminemia Will continue to monitor PO intake, skin status, pertinent labs and weight trend. F/u in 3 to 5 days. Rec.: 1.) Consider enter order for daily MVI with minerals and Asc acid 500 mgs BID, already e-signed approved by ). 2.) If renal labs continue trending up, consider Renal Specific: 60 gms pro, 2 gms Na diet. 3.) Consider close supervision and feeding assistance prn during meals. 4.) Refer to RD for further nutrition educ. and weight monitoring upon discharge. 5.) Continue current plan of care.
[2019-06-25 12:00] VITALS: BP 113/57
--- NOTE | 2019-06-25 13:05 | NUR ---
Pt also worked on a few bedside ther ex exercises. Pt was able to complete x 10 reps for each activity. Pt worked on marching for approx 1 to 2 min, followed by heel/toe raises, and mini squats Pt was transferred to a chair using stand step pivot method and augusta dylan sitting up in chair for approx 2 hrs w/ min c/o Addendum: 06/25/19 at 1307 by Beckie Zepeda PT Amended: Links added.
--- NOTE | 2019-06-25 13:30 | NUR ---
Patient back to bed from bedside chair with Beckie PT and Ha PT, fall precautions in placed. Patient tolerated well.
--- NOTE | 2019-06-25 13:35 | NUR ---
Patient had small amount of brown soft stool, perineal care rendered. Skin integrity assessed for any changes. Sacral and thigh wounds cleansed with wound cleanser, pat dry with sterile gauze, z-guard applied and covered with optifoam. Linens partially changed. Patient repositioned for comfort.
[2019-06-25 16:00] VITALS: BP 116/59
[2019-06-25 19:46] LABS: Protein, Urine 22.7 mg/dL (0.0-11.9)
[2019-06-25] MEDS: ALBUTEROL SULF 2.5 MG/0.5ML(0.5%) NEB SOLN NEB PRN (19:54)
[2019-06-25 20:00] VITALS: BP 114/41
[2019-06-26] VITALS: BP 111/51
[2019-06-26] MEDS: methylPREDNISolone SOD SUCC 40 MG/ML VL IV SCH ×4 (00:01→23:44)
[2019-06-26] MEDS: SODIUM BICARBONATE 650 MG TAB PO SCH ×3 (00:01→23:44)
[2019-06-26] MEDS: ATORVASTATIN 20 MG TAB PO SCH ×2 (00:02→23:43)
[2019-06-26] MEDS: PANTOPRAZOLE 40 MG TAB PO SCH ×3 (00:02→23:43)
[2019-06-26] MEDS: LINEZOLID 600MG TABLET PO SCH ×3 (00:02→23:44)
[2019-06-26] MEDS: FUROSEMIDE INJECTION 100 MG in D5W 5% 90 ML IV SCH ×3 (02:01→23:57)
[2019-06-26 04:00] VITALS: BP 110/50
[2019-06-26 05:19] LABS: Hematocrit 22.2 % (36.0-46.0); Hemoglobin 7.6 g/dL (12.2-16.2)
[2019-06-26 05:39] LABS: BUN/Creatinine Ratio 15.8; Phosphorus 5.6 mg/dL (2.5-4.90); Potassium 3.8 mmol/L (3.5-5.1)
[2019-06-26 05:59] LABS: Calcium 5.7 mg/dL (8.5-10.1)
--- NOTE | 2019-06-26 06:19 | NUR ---
Critical value Ca 5.7, Hospitalist paged.
[2019-06-26] MEDS ORDERED: CALCIUM GLUC 4.65meq/50ml D5AE 50 ML IV ONE (07:30)
[2019-06-26 08:00] VITALS: BP 114/55
--- NOTE | 2019-06-26 08:00 | NUR ---
Opening Shift Note Assumed care of patient, awake and alert. Patient A&Ox4. Patient on the monitor. Patient on 4L NC saturation at 99%. IV right forearm 22G running Lasix at 10ml/hr and left upper arm midline saline locked, both IV's patent, clean, dry, and intact. Padilla to gravity. Dressing bilateral lower legs clean, dry, and intact. No S/S of distress/SOB or pain. Instructed on POC and to call for assist. Bed locked and in the lowest position, side rails up x2, call light with in reach. Will continue to monitor.
--- NOTE | 2019-06-26 08:30 | NUR ---
Patient sitting up in bed eating breakfast independently. Will continue to monitor.
[2019-06-26] MEDS: ALBUTEROL SULF 2.5 MG/0.5ML(0.5%) NEB SOLN NEB PRN ×2 (09:28→23:00)
[2019-06-26] MEDS: BUDESONIDE (INHALATION) 0.5 MG/2 ML NEB NEB SCH ×2 (09:28→23:00)
--- NOTE | 2019-06-26 10:00 | NUR ---
Medication dosages, usages, and side effects explained to patient. Patient verbalized understanding. Will continue to monitor.
[2019-06-26] MEDS: Ensure Enlive Chocolate 8oz Bottle PO SCH ×2 (10:49→17:42)
[2019-06-26] MEDS: ASPirin-EC 81 mg tab PO SCH (10:49)
[2019-06-26] MEDS: Pro-Stat SF 30ml Vanilla PO SCH ×2 (10:49→17:42)
--- NOTE | 2019-06-26 11:45 | NUR ---
Dr. Henson at bedside.
[2019-06-26 12:00] VITALS: BP 103/52
[2019-06-26] MEDS ORDERED: POTASSIUM EFFERVESENT TAB 25 MEQ PO ONE (12:00)
--- NOTE | 2019-06-26 12:00 | NUR ---
PT assisted patine to bedside chair. Patient tolerating. Will continue to monitor.
--- NOTE | 2019-06-26 12:30 | NUR ---
Patient sitting up in bedside chair eating lunch independently. Will continue to monitor.
[2019-06-26] MEDS: CALCIUM ACETATE 667 MG CAP PO SCH ×2 (13:03→18:38)
--- NOTE | 2019-06-26 14:15 | NUR ---
Patient still tolerating bedside chair. Patient denies pain or SOB at this time. Will continue to monitor.
--- NOTE | 2019-06-26 16:45 | NUR ---
Patient still tolerating bedside chair. Patient denies pain or SOB at this time. Will continue to monitor.
--- NOTE | 2019-06-26 18:30 | NUR ---
End of shift note: Patient sitting up in bedside chair eating dinner independently. Patient A&Ox4. Patient on the monitor. Patient on 4L NC saturation at 100%. IV right forearm 22G running Lasix at 10ml/hr and left upper arm midline saline locked, both IV's patent, clean, dry, and intact. Padilla to gravity. Dressing bilateral lower legs clean, dry, and intact. No S/S of distress/SOB or pain. Bed locked and in the lowest position, side rails up x2, call light with in reach. Report to be given to warehouse supervisor 3rd shift RN. Will continue to monitor.
[2019-06-26 20:00] VITALS: BP 121/46
[2019-06-27] VITALS: BP 105/51
[2019-06-27] MEDS: ALBUTEROL SULF 2.5 MG/0.5ML(0.5%) NEB SOLN NEB PRN ×2 (03:04→19:09)
[2019-06-27 04:00] VITALS: BP 102/50
--- NOTE | 2019-06-27 06:20 | NUR ---
Performed morning care with CHG wipes and wash cloth for the face. Partial linen change.
[2019-06-27] MEDS: FUROSEMIDE INJECTION 100 MG in D5W 5% 90 ML IV SCH ×2 (06:30→11:08)
[2019-06-27 06:38] LABS: BUN/Creatinine Ratio 16.6; Calcium 8.5 mg/dL (8.5-10.1); Magnesium 2.1 mg/dL (1.6-2.6); Potassium 4.1 mmol/L (3.5-5.1)
--- NOTE | 2019-06-27 07:00 | NUR ---
Pt remained stable this shift. Had 2 episodes of shortness of breath, one resolved while the other required a breathing treatment from RT. Rt FA IV was no longer patent and started leaking at 0300, IV DC'd and canula that was removed was intact. New IV start at 0545, 22g RT FA, pt tolerated well. 1 BM this shift. Report given, care endorsed.
[2019-06-27] MEDS: methylPREDNISolone SOD SUCC 40 MG/ML VL IV SCH ×3 (07:01→23:04)
[2019-06-27] MEDS: LEVOFLOXACIN 250MG 50 ML IV SCH (07:02)
--- NOTE | 2019-06-27 07:30 | NUR ---
RECEIVED PATIENT SITTING UP IN THE BED, O2 AT 2L BY N/C, LASIX DRIP AT 10ML/HR INFUSING INTO THE RFA BY THE IV PUMP, MIDLINE TO THE BRUNILDA FLUSHED AND PATENT, MORALES TO GRAVITY, NIKO LEGS WITH UNNA BOOTS, NO COMPLAINTS AT THIS TIME,
[2019-06-27 08:00] VITALS: BP 100/38
--- NOTE | 2019-06-27 08:00 | NUR ---
PATIENT TURNED AND GOT A LITTLE SOB WITH THE MOVEMENT EXPRESS TO HER THAT SHE NEEDS TO RELAX AND DO HER PURSE-LIP BREATHING AND TAKE THE BREATHS NICE AND SLOW PATIENT RECOVERED IN LESS THAN A MINUTE, O2 SAT REMAINED AT 95%, DURING THE SOB PERIOD, PATIETN GETS ANXIOUS
[2019-06-27] MEDS: Pro-Stat SF 30ml Vanilla PO SCH ×2 (08:24→17:37)
[2019-06-27] MEDS: CALCIUM ACETATE 667 MG CAP PO SCH ×3 (08:24→17:48)
[2019-06-27] MEDS: Ensure Enlive Chocolate 8oz Bottle PO SCH ×2 (08:25→17:37)
--- NOTE | 2019-06-27 08:30 | NUR ---
SAT UP IN BED AND ATE VERY LITTLE BREAKFAST ABLE TO FEED HERSELF
--- NOTE | 2019-06-27 09:05 | NUR ---
VOMITED ABOUT 50ML OF CLEAR THIN SPUTUM, WHEN COUGHING, EXPRESS TO HER THAT SHE NEEDS TO COUGH IT UP WHEN SHE CAN AND NOT SWALLOW IT, STATES SHE KNOWS
--- NOTE | 2019-06-27 09:55 | NUR ---
PATIENT GOTTEN UP INTO THE CHAIR BY PT MAX ASSIST
--- NOTE | 2019-06-27 10:00 | NUR ---
DR ANGELES INTO SEE THE PATIENT AND SPOKE TO THE PATIENT AND HER SON REGARDING THE POC
[2019-06-27] MEDS: ASPirin-EC 81 mg tab PO SCH (10:11)
[2019-06-27] MEDS: LINEZOLID 600MG TABLET PO SCH ×2 (10:12→23:04)
[2019-06-27] MEDS: BUDESONIDE (INHALATION) 0.5 MG/2 ML NEB NEB SCH ×2 (10:23→19:09)
--- NOTE | 2019-06-27 11:00 | NUR ---
SITTING UP IN THE CHAIR WATCHING TV,
[2019-06-27 12:00] VITALS: BP 116/51
--- NOTE | 2019-06-27 12:10 | NUR ---
PATIENT GOTTEN BACK INTO THE BED BY PT, MAX ASSIST
--- NOTE | 2019-06-27 12:15 | NUR ---
DR SANDRA IN TO SEE THE PATIENT
--- NOTE | 2019-06-27 12:25 | NUR ---
CHEST X-RAY BEING DONE
--- NOTE | 2019-06-27 12:29 | NUR ---
SITTING UP IN THE BED,
--- NOTE | 2019-06-27 13:16 | NUR ---
ATE VERY LITTLE LUNCH SITTING UP IN BED WITH EYES CLOSED
--- NOTE | 2019-06-27 14:00 | NUR ---
sitting up in bed with eyes closed
--- NOTE | 2019-06-27 15:00 | NUR ---
APPEARS TO BE SLEEPING EYES CLOSED
[2019-06-27 16:00] VITALS: BP 125/62
--- NOTE | 2019-06-27 16:00 | NUR ---
NO CHANGE EYES CLOSED APPEARS TO BE SLEEPING
--- NOTE | 2019-06-27 17:00 | NUR ---
dressing changed to isaias legs as instructed
--- NOTE | 2019-06-27 18:30 | NUR ---
SITTING UP IN BED WATCHING TV AND EATING HER DINNER, NO COMPLAINTS OF PAIN OR SOB, O2 AT 2L BY N/C, MORALES TO GRAVITY, DRESSING CHANGED TO THE SACRUM AND BUTTOCKS, DRESSING TO THE NIKO LEGS INTACT, SALINE LOCK TO THE BRUNILDA MIDLINE AND RFA 20G BOTH FLUSHED AND PATENT, WILL CONTINUE TO MONITOR AND GIVE REPORT TO THE NEXT SHIFT
--- NOTE | 2019-06-27 19:00 | NUR ---
OPENING NOTES ASSUMED CARE, A/O X 4 WITH NO SIGNS OF DISTRESS, ON O2/NASAL CANNULA @ 2L/MIN, SPO2 98%, STILL WITH COUGH, IV ACCESS PATENT AND INTACT, MORALES CATHETER DRAINING TO A LIGHT KIRA URINE, BILATERAL LOWER EXTREMITIES DRESSINGS ARE CLEAN, DRY AND INTACT. BED IN LOWEST POSITION WITH SIDE RAILS UP, BED ALARM ON AND CALL LIGHT WITHIN REACH. ENCOURAGED TO CALL IF SHE NEEDS SOMETHING. WILL CONTINUE CARE.
[2019-06-27 20:00] VITALS: BP 115/59
[2019-06-27] MEDS: ATORVASTATIN 20 MG TAB PO SCH (23:05)
[2019-06-28] VITALS (7 sets, daily range): BP systolic 115–147; BP diastolic 51–74
--- NOTE | 2019-06-28 05:00 | NUR ---
REFUSED MORNING CARE
--- NOTE | 2019-06-28 05:30 | NUR ---
PLACED ON A BEDPAN BUT NO BM WAS NOTED.
[2019-06-28] MEDS: methylPREDNISolone SOD SUCC 40 MG/ML VL IV SCH ×3 (06:00→23:03)
[2019-06-28 06:03] LABS: Basophils # (auto) 0 uL; Basophils % (auto) 0.2 % (0.0-2.0); Eosinophils # (auto) 0 uL; Hematocrit 22.6 % (36.0-46.0); Hemoglobin 7.6 g/dL (12.2-16.2); Lymphocytes # (auto) 0.4 uL; Lymphocytes % (auto) 5.3 % (10.0-50.0); Mean Corpuscular Hemoglobin 29.7 pg (28.0-32.0); Mean Corpuscular Hgb Conc. 33.8 g/dL (32.0-36.0); Mean Corpuscular Volume 87.8 fL (80.0-100.0); Monocytes # (auto) 0.2 uL; Monocytes % (auto) 2.3 % (0.0-12.0); Neutrophils # (auto) 6.7 uL; Neutrophils % (auto) 92.2 % (37.0-80.0); Nucleated Red Blood Cells % 0.4 %; Platelet Count (auto) 172 10^3/uL (140-450); Red Blood Cells 2.58 10^6/uL (4.0-5.20); Red Cell Distribution Width 17.9 % (11.8-14.3); White Blood Cell 7.2 10^3/uL (4.4-10.8)
--- NOTE | 2019-06-28 07:15 | NUR ---
CLOSING NOTES RESTING ON BED WITH NO SIGNS OF DISTRESS. REPORT GIVEN TO DAY SHIFT RN.
--- NOTE | 2019-06-28 08:00 | NUR ---
Opening Shift Note Assumed care of patient, awake and alert. Patient A&Ox4. Patient on the monitor. Patient on 2L NC saturation at 100%. IV right forearm 22G saline locked and left upper arm midline saline locked, both IV's patent, clean, dry, and intact. Padilla to gravity. Dressing bilateral lower legs clean, dry, and intact. No S/S of distress/SOB or pain. Instructed on POC and to call for assist. Bed locked and in the lowest position, side rails up x2, call light with in reach. Will continue to monitor.
[2019-06-28] MEDS: Pro-Stat SF 30ml Vanilla PO SCH ×2 (08:03→18:00)
[2019-06-28] MEDS: Ensure Enlive Chocolate 8oz Bottle PO SCH ×2 (08:03→18:00)
[2019-06-28 08:18] LABS: BUN/Creatinine Ratio 19.5; Calcium 8.7 mg/dL (8.5-10.1); Phosphorus 3.2 mg/dL (2.5-4.90); Potassium 4.2 mmol/L (3.5-5.1)
--- NOTE | 2019-06-28 08:30 | NUR ---
Patient sitting up in bed eating breakfast independently. Will continue to monitor.
[2019-06-28] MEDS: CALCIUM ACETATE 667 MG CAP PO SCH ×4 (08:31→18:00)
[2019-06-28] MEDS: BUDESONIDE (INHALATION) 0.5 MG/2 ML NEB NEB SCH ×2 (09:32→22:30)
--- NOTE | 2019-06-28 10:00 | NUR ---
Medication dosages, usages, and side effects explained to patient. Patient verbalized understanding. Will continue to monitor.
--- NOTE | 2019-06-28 10:06 | NUR ---
PT Patient eating BF during morning visit. Addendum: 06/28/19 at 1006 by CHRISTIANA MANCILLA PTT Amended: Links added.
--- NOTE | 2019-06-28 10:30 | NUR ---
Dr. Hairston at bedside.
[2019-06-28] MEDS: CHOLECALCIFEROL (VITD3) 1,000 UNIT TAB PO SCH (10:34)
[2019-06-28] MEDS: LINEZOLID 600MG TABLET PO SCH ×2 (10:35→23:04)
[2019-06-28] MEDS: PANTOPRAZOLE 40 MG TAB PO SCH (10:35)
[2019-06-28] MEDS: ASPirin-EC 81 mg tab PO SCH (10:35)
--- NOTE | 2019-06-28 11:00 | NUR ---
Dr. Cote at bedside.
--- NOTE | 2019-06-28 12:30 | NUR ---
Patient sitting up in bed eating lunch independently. Will continue to monitor.
--- NOTE | 2019-06-28 14:10 | NUR ---
Nutrition Follow-up Notes Wt.: 73.2 kg as of yesterday. Pt's in isolation room, on oxygen via nasal cannula, asleep, no signs of distress noted during rounds this morning. Pt's currently on 2 gms Na diet with with Ensure Enlive 1 carton BID and Prostat 1 pkt BID, has fair PO aeb 60% ave. consumed meals (x6) in last 2.5 days. Est. Needs: 1350 kcal to 1700 kcal (20-25 kcal/kgBW), 54 gms to 68 gms pro (0.8-1.0 gms/kgBW). Will continue to monitor pertinent labs and reassess nutrient need prn Labs: Gluc 121 H, BUN 52 H, Cr 2.67 H Skin: Hansel scale 14, mod risk, pt's with pressure ulcer sacrum per instrumentation technologist. Pls refer to marketing manager's notes for further details re: tx plans. GI: Pt had 2x BM this morning per instrumentation technologist. PES: Altered nutrition related lab values r/t current/chronic medical condition aeb hyperchloremia, elev. renal labs, hypocalcemia and severe hypoalbuminemia Will continue to monitor PO intake, skin status, pertinent labs and weight trend. F/u in 3 to 5 days. Rec.: 1.) Consider enter order for daily MVI with minerals and Asc acid 500 mgs BID, already e-signed approved by ). 2.) If renal labs continue trending up, consider Renal Specific: 60 gms pro, 2 gms Na diet. 3.) Continue close supervision and feeding assistance prn during meals. 4.) Refer to RD for further nutrition educ. and weight monitoring upon discharge. 5.) Continue current plan of care.
--- NOTE | 2019-06-28 16:10 | NUR ---
Report given to Jana SIMEON. Patient going to room 231.
--- NOTE | 2019-06-28 16:20 | NUR ---
Patient taken to room 231. All belongings taken with the patient. Patient in new room and resting now. BLANCO mccloud.
--- NOTE | 2019-06-28 16:28 | NUR ---
[facility] admit from [facility] admitted to [facility] after SBAR received. Patient oriented to Emeli Guerrero, primary RN, unit, room, bed, and unit policies regarding patient care and visiting hours. Patient weighed by bedscale and encouraged to call if they need something. All questions and concerns addressed, patient verbalized understanding. No distress or sob noted at this time. Fall precs in place per protocol including call light within reach and bed alarm on at all times. COnt care
--- NOTE | 2019-06-28 19:00 | NUR ---
Patient care endorsed endorsed care to Amaury shen. Patient sitting up in bed, refused Phoslo. No distress or sob noted at this time. Fall precs in place.
--- NOTE | 2019-06-28 19:25 | NUR ---
Opening Shift Note Assumed care of patient, awake and alert. No S/S of distress/SOB. The patient c/o lower leg pain but did not request any pain medication. Instructed on POC and to call for assist PRN, will continue to monitor for changes Q1hr and PRN.
--- NOTE | 2019-06-28 22:25 | NUR ---
IV removal Right FA 20G IV DC'd with clean sterile technique, catheter fully intact. Pressure dressing applied to site. Patient tolerated well.
[2019-06-28] MEDS: ALBUTEROL SULF 2.5 MG/0.5ML(0.5%) NEB SOLN NEB PRN (22:30)
[2019-06-28] MEDS: ATORVASTATIN 20 MG TAB PO SCH (23:04)
[2019-06-29 04:40] VITALS: BP 135/75
[2019-06-29] MEDS: methylPREDNISolone SOD SUCC 40 MG/ML VL IV SCH (06:00)
[2019-06-29] MEDS: BUDESONIDE (INHALATION) 0.5 MG/2 ML NEB NEB SCH ×2 (06:17→22:04)
[2019-06-29] MEDS: CALCIUM ACETATE 667 MG CAP PO SCH (08:00)
[2019-06-29] MEDS: Ensure Enlive Chocolate 8oz Bottle PO SCH ×2 (08:00→18:00)
[2019-06-29] MEDS: Pro-Stat SF 30ml Vanilla PO SCH ×2 (08:00→18:00)
[2019-06-29 08:41] VITALS: BP 140/98
--- NOTE | 2019-06-29 10:14 | NUR ---
PT Patient declined to be OOB during morning PT visit and requested to comeback later. Addendum: 06/29/19 at 1016 by CHRISTIANA MANCILLA PTT Amended: Links added.
[2019-06-29 10:31] LABS: BUN/Creatinine Ratio 22.9; Calcium 8.6 mg/dL (8.5-10.1); Potassium 3.8 mmol/L (3.5-5.1)
[2019-06-29] MEDS: CHOLECALCIFEROL (VITD3) 1,000 UNIT TAB PO SCH (10:59)
[2019-06-29] MEDS: LINEZOLID 600MG TABLET PO SCH (11:00)
[2019-06-29] MEDS: PANTOPRAZOLE 40 MG TAB PO SCH (11:00)
[2019-06-29] MEDS: ASPirin-EC 81 mg tab PO SCH (11:00)
--- NOTE | 2019-06-29 11:25 | NUR ---
Hospitalist at bedside Spoke to MD Hairston aware of patient's status. Per MD patient will be dc home tomorrow after Hospice eval. No new orders received cont care
[2019-06-29 13:00] VITALS: BP 136/59
--- NOTE | 2019-06-29 13:30 | NUR ---
Patient had BM Patient assisted to bedpan by MARI Kurtz and she states pt had bowel movement and no blood noted in stool. Cont to monitor
--- NOTE | 2019-06-29 14:14 | NUR ---
D/C Planning Per SS consult for hospice. Information and Choice letter was given to Pt son Lv via verbal phone. Pt son requested [facility]. Pt son verbalize understanding. Contacted [facility] Ph:) Fax:) faxed medical records. Per ERIN Norman from [facility] advised me Pt son Lv stated to her if they can evaluate Pt on 06/30/19 because his brother wants to be present. Per Ester from [facility] vacuum cleaner repair person Lana will evaluate Pt between 13:00-15:00 on 06/30/19. Informed MD Dr. Hairston
[2019-06-29 15:50] VITALS: BP 136/59
[2019-06-29 17:00] VITALS: BP 137/70
--- NOTE | 2019-06-29 19:00 | NUR ---
Patient care endorsed endorsed care to Sonia shen. Patient sitting up in bed in no acute distress or sob. Call light within reach
--- NOTE | 2019-06-29 19:40 | NUR ---
Opening Shift Note Assumed care of patient, awake and alert oriented x4. No S/S of distress/SOB or pain noted. Bed is in lowest locked position with bed rails up x2 and call light is within reach of the patient. Instructed on POC and to call for assist PRN. Addendum: 06/29/19 at 2053 by Shireen Gardner RN RN To turn patient q 2 hours and prn
[2019-06-29] MEDS: ATORVASTATIN 20 MG TAB PO SCH (21:31)
[2019-06-29 21:45] VITALS: BP 130/62
[2019-06-29] MEDS: ALBUTEROL SULF 2.5 MG/0.5ML(0.5%) NEB SOLN NEB PRN (22:04)
--- NOTE | 2019-06-30 00:15 | NUR ---
MIDLINE DRESSING: Midline dressing due to be changed. Attempted to gather supplies to change midline dressing but no midline clip was available for dressing change. Called [facility] to see if they had Midline clips available for dressing change. Did not have them available, only PICC line dressing kits.
[2019-06-30 04:43] VITALS: BP 120/58
[2019-06-30] MEDS: BUDESONIDE (INHALATION) 0.5 MG/2 ML NEB NEB SCH ×2 (07:10→17:43)
[2019-06-30 07:51] VITALS: BP 130/65
[2019-06-30] MEDS: Pro-Stat SF 30ml Vanilla PO SCH ×2 (08:00→18:57)
[2019-06-30] MEDS: Ensure Enlive Chocolate 8oz Bottle PO SCH ×2 (08:00→18:57)
[2019-06-30] MEDS: CHOLECALCIFEROL (VITD3) 1,000 UNIT TAB PO SCH (09:33)
[2019-06-30] MEDS: predniSONE 20 MG TAB PO SCH (09:33)
[2019-06-30] MEDS: ASPirin-EC 81 mg tab PO SCH (09:33)
[2019-06-30] MEDS: PANTOPRAZOLE 40 MG TAB PO SCH (09:33)
--- NOTE | 2019-06-30 10:31 | NUR ---
PT Patient declined to be OOB and stated come back after lunch. Addendum: 06/30/19 at 1032 by CHRISTIANA MANCILLA PTT Amended: Links added.
--- NOTE | 2019-06-30 11:30 | NUR ---
PER DR. ANGELES PATIENT GO HOME WITH MORALES CATHETER.
--- NOTE | 2019-06-30 11:45 | NUR ---
Das catheter changed Patient assessed and determined to be in need of das catheter changed. Order obtained from Dr. Yovanny BOJORQUEZ. Patient educated on catheter and reason for insertion. All questions answered. Das catheter 16 Irish inserted with clean sterile technique. Patient tolerated well.
[2019-06-30 11:54] VITALS: BP 125/56
--- NOTE | 2019-06-30 11:54 | NUR ---
CARE ENDORSED TO BYRON SIMEON.
--- NOTE | 2019-06-30 12:00 | NUR ---
PT IN BED, LOW FOWLERS, AWAKE, ALERT, RESPONSIVE TO COMMANDS, ABLE TO LET NEEDS KNOWN. BED LOCKED AND IN LOWEST POSITION, CALL LIGHT WITHIN REACH. WILL CONTINUE TO MONITOR.
[2019-06-30] MEDS ORDERED: CHOL1000 PO (12:10)
[2019-06-30] MEDS ORDERED: ATOR20TA50 PO (12:10)
[2019-06-30] MEDS ORDERED: ASP81EC PO (12:10)
--- NOTE | 2019-06-30 14:30 | NUR ---
ALICIA RN FROM [facility] IN TO EVALUATE PT. QUESTIONS AND CONCERNS ADDRESSED. PER ALICIA POSSIBLE DISCHARGE TOMORROW AFTER 1200.
--- NOTE | 2019-06-30 16:45 | NUR ---
COMPLETE BED LINEN CHANGED. WOUND CARE COMPLETED. PT TOLERATED PROCEDURE WELL. COMFORTABLE ENVIRONMENT PROVIDED. CALL LIGHT WITHIN REACH. GRANDDAUGHTER AT BEDSIDE.
[2019-06-30 16:48] VITALS: BP 141/68
--- NOTE | 2019-06-30 17:24 | NUR ---
D/C Planning Followed up call to [facility] Ph:( [phone]) spoke to Package Line Operator Ester. Per Package Line Operator Ester from [facility] will be delivering DME to home tomorrow 07/01/19 after 12:00. Advised BLANCO Alcantara to informed Dr. Yovanny BOJORQUEZ regarding d/c plan. BLANCO Alcantara stated Dr. Yovanny BOJORQUEZ has been informed.
--- NOTE | 2019-06-30 19:40 | NUR ---
Opening Shift Note Assumed care of patient, awake and alert oriented x4. No S/S of distress/SOB or pain noted. Bed is in lowest locked position with bed rails up x2 and call light is within reach of the patient. Instructed on POC and to call for assist PRN. Heels off the bed elevated off with a pillow.
[2019-06-30 22:00] VITALS: BP 135/64
[2019-06-30] MEDS: ATORVASTATIN 20 MG TAB PO SCH (22:39)
--- NOTE | 2019-07-01 02:17 | NUR ---
Patient Anxious: Upon walking into patients room patient requested for this RN to stay in the room and patient stated "I feel funny, dont leave the room." Assessed the patient and vital signs taken. Blood pressure 132/67, heart rate 79, Temperature 98.4, oxygen saturation is at 99% on 3 liters, respiratory rate 31. Asked patient what is she feeling and why does she feel funny, patient stated "I dont know I cant explain it." Asked patient if she had any pain, patient denied having any pain. Asked patient if she was comfortable and if she wanted to be moved on the bed, patient did not want to be moved. Asked patient if she was anxious patient stated "I dont know" Patients respiratory rate was elevated, paged RT at this time for PRN breathing treatment.
[2019-07-01 05:00] VITALS: BP 139/62
--- NOTE | 2019-07-01 06:04 | NUR ---
Bowel movement: Patient able to have a bowel movement on the bedpan. Cleaned patient and changed sacral dressing. Patient tolerated well. states "I feel better, I think thats what it was." After having a bowel movement. Patient had loose dark brown stools.
[2019-07-01] MEDS: Ensure Enlive Chocolate 8oz Bottle PO SCH (08:00)
[2019-07-01] MEDS: Pro-Stat SF 30ml Vanilla PO SCH (08:00)
[2019-07-01 08:30] VITALS: BP 139/67
[2019-07-01] MEDS: ASPirin-EC 81 mg tab PO SCH (10:09)
[2019-07-01] MEDS: predniSONE 20 MG TAB PO SCH (10:09)
[2019-07-01] MEDS: CHOLECALCIFEROL (VITD3) 1,000 UNIT TAB PO SCH (10:09)
[2019-07-01] MEDS: PANTOPRAZOLE 40 MG TAB PO SCH (10:09)
[2019-07-01] MEDS: BUDESONIDE (INHALATION) 0.5 MG/2 ML NEB NEB SCH (10:30)
--- NOTE | 2019-07-01 11:32 | NUR ---
D/C Planning Followed up call to [facility] spoke to Ester. Informed Ester Pt will be d/c home today. Contacted [facility] Ph:) spoke to Brigid. Advised Brigid to arrange transportation at 13:00 via [place]. Informed BLANCO Alcantara.
[2019-07-01 12:24] VITALS: BP 139/67
[2019-07-01 12:59] VITALS: BP 121/68
--- NOTE | 2019-07-01 13:55 | NUR ---
PRIOR ARRANGEMENTS MADE BY RESEARCH QUALITY ASSURANCE SPECIALIST AND HOSPICE AGENCY. TRANSFER IN AGREEMENT WITH PT, AGENCY AND RESEARCH QUALITY ASSURANCE SPECIALIST. DISCHARGE INSTRUCTIONS GIVEN TO PT, PACKET PROVIDED TO TRANSPORT TEAM. PT IN AGREEMENT WITH TRANSPORT. UNNAS BOOT REPLACED, DRESSING CHANGED TO ALL WOUNDS WITH DOCUMENTATION OF PICTURES, BRUNILDA MIDLINE CATHETER DC'D, CATHETER INTACT, NO PHLEBITIS. DISCHARGE MRSA SPECIMEN COLLECTED; DISCARDED IN [facility] BIN BY EVS DEPARTMENT; UNABLE TO SEND SPECIMEN TO LAB, PT HAD LEFT UNIT. EDUCATIONAL MATERIAL PROVIDED TO PT, QUESTIONS AND CONCERNS ADDRESSED. PT SAFELY TRANSFERRED TO TRANSPORT [facility] AND ESCORTED OUT OF UNIT. NO DISTRESS AT THIS TIME.
== END 2019-07-01 13:55 | disposition hospice, home (50) | DRG 252 ==
LOC: ER 00:08 → TELE 00:09 → TELE-CENTR 11:15 → DOU IN ICU 06-21 12:29 → TELE-EAST 06-28 16:28 → EAST 06-29 19:23
PROVIDERS: ADMIT Nurse Practitioner; ATTEND Internal Medicine
PROC: 047K3Z1 Dilation of Right Femoral Artery using Drug-Coated Balloon, Percutaneous Approach (ICD-10-PCS; principal; 2019-06-17)
PROC: 047M3Z1 Dilation of Right Popliteal Artery using Drug-Coated Balloon, Percutaneous Approach (ICD-10-PCS; 2019-06-17)
PROC: B41GYZZ Fluoroscopy of Left Lower Extremity Arteries using Other Contrast (ICD-10-PCS; 2019-06-17)
PROC: B41FYZZ Fluoroscopy of Right Lower Extremity Arteries using Other Contrast (ICD-10-PCS; 2019-06-17)
PROC: B41CYZZ Fluoroscopy of Pelvic Arteries using Other Contrast (ICD-10-PCS; 2019-06-17)
DX: I73.9 Peripheral vascular disease, unspecified (principal); K57.31 Diverticulosis of large intestine without perforation or abscess with bleeding; N17.0 Acute kidney failure with tubular necrosis; E43 Unspecified severe protein-calorie malnutrition; I50.33 Acute on chronic diastolic (congestive) heart failure; I13.0 Hypertensive heart and chronic kidney disease with heart failure and stage 1 through stage 4 chronic kidney disease, or unspecified chronic kidney disease; L03.90 Cellulitis, unspecified; J44.1 Chronic obstructive pulmonary disease with (acute) exacerbation; I48.19 Other persistent atrial fibrillation; N18.4 Chronic kidney disease, stage 4 (severe); Z16.21 Resistance to vancomycin; I95.9 Hypotension, unspecified; Z90.710 Acquired absence of both cervix and uterus; R80.9 Proteinuria, unspecified; R31.9 Hematuria, unspecified; B96.5 Pseudomonas (aeruginosa) (mallei) (pseudomallei) as the cause of diseases classified elsewhere; L89.152 Pressure ulcer of sacral region, stage 2; K80.20 Calculus of gallbladder without cholecystitis without obstruction; I87.2 Venous insufficiency (chronic) (peripheral); Z53.20 Procedure and treatment not carried out because of patient's decision for unspecified reasons; D50.0 Iron deficiency anemia secondary to blood loss (chronic); N87.9 Dysplasia of cervix uteri, unspecified; E83.39 Other disorders of phosphorus metabolism; B96.20 Unspecified Escherichia coli [E. coli] as the cause of diseases classified elsewhere; I07.1 Rheumatic tricuspid insufficiency; I27.20 Pulmonary hypertension, unspecified; L30.9 Dermatitis, unspecified; N30.91 Cystitis, unspecified with hematuria; T50.8X5A Adverse effect of diagnostic agents, initial encounter; Z51.5 Encounter for palliative care; Z66 Do not resuscitate; Z82.49 Family history of ischemic heart disease and other diseases of the circulatory system; Z68.27 Body mass index [BMI] 27.0-27.9, adult; Y92.89 Other specified places as the place of occurrence of the external cause; Z88.0 Allergy status to penicillin; Z82.5 Family history of asthma and other chronic lower respiratory diseases; Z90.49 Acquired absence of other specified parts of digestive tract; B95.2 Enterococcus as the cause of diseases classified elsewhere
CPT/HCPCS: 36415; 37224; 71045; 74176; 75635; 75716; 75736; 76775; 76942; 80048; 80053; 80061; 80202; 81001; 82040; 82306; 82310; 82378; 82533; 82570; 83540; 83550; 83735; 83880; 83970; 84100; 84132; 84156; 84300; 84484; 84520; 85014; 85018; 85025; 85610; 85730; 86850; 86900; 86901; 87077; 87086; 87088; 87186; 87205; 93005; 93306; 93926; 94640; 96365; 96367; 96375; 97110; 97116; 97163; 97530; 99152; 99153; C1725; C9113; G0378; J0610; J1956; J2250; J2405; J3490; J7060; P9047; Q9967